=== PATIENT | male | born 1965 | race Caucasian/White ===

== ENCOUNTER 2016-12-09 10:53 | Day surgery (SDC) | payer BC ==
[2016-12-06 09:34] VITALS: BMI 35.9
[~2016-12-09 10:53] MED LIST: HYDROmorphone 1 MG/ML 1 ML SYRINGE IVP PRN; LACTATED RINGERS 1,000 ML IV SCH; LIDOCAINE 1% 20 ML VIAL (10MG/ML) FOR IV START INTRADERMA PRN; MIDAZOLAM 2 MG/2 ML VIAL IV PRN
[2016-12-09] MEDS ORDERED: LACTATED RINGERS 1,000 ML IV ONE (11:13)
[2016-12-09] MEDS ORDERED: LIDOCAINE 1% 20 ML VIAL (10MG/ML) FOR IV START INTRADERMA ONE (11:14)
[2016-12-09 11:19] VITALS: TEMP 98.7
[2016-12-09] MEDS ORDERED: fentaNYL (PF) 50 MCG/ML 2 ML AMP IV ONE (11:30)
[2016-12-09] MEDS ORDERED: LIDOCAINE 1% INJ 10MG/ML (20 ML MDV) ONE (12:22)
[2016-12-09] MEDS ORDERED: PROPOFOL 10 MG/ML 20 ML VIAL IV ONE (12:22)
[2016-12-09 12:58] VITALS: RESP 16
--- NOTE | 2016-12-09 13:00 | P.PCN ---
Date of Procedure: 12/09/16 Procedure(s) Performed: Procedure: Total colonoscopy. Preoperative diagnosis: Screening for neoplasia, patient has family history of colon cancer. Postoperative diagnosis: Sigmoid diverticulosis with no evidence of acute diverticulitis, strictures, polyps or cancer. Preparation: HalfLytely prep. Sedation: Was provided by anesthesia. Brief clinical history: The patient is a 50-year-old male who is referred for this evaluation for screening because of family history of colon cancer in his father. He had a prior exam around 7 years ago. The patient has no abdominal complaints, bleeding or anemia. He has been complaining of nocturia and was wondering if this is related to his prostate. Procedure: With the patient on his left lateral decubitus position and after informed consent and adequate sedation, the perianal area was inspected and it did not show any fissures or fistulas. There were no masses felt on digital rectal examination. The prostate was not palpable and certainly I did not feel any masses or nodules in that area. The Olympus CFQ 160L video colonoscope was then inserted in the rectum in the usual fashion and advanced to the cecum. There were several diverticular orifices seen scattered in the sigmoid but I saw no evidence of acute diverticulitis or strictures. No polyps or tumors were seen or any other pathology. I retroflexed the endoscope in the rectum before the endoscope was withdrawn. The patient tolerated the procedure well. Plan: The patient was reassured. Discussed dietary measures. He will follow up with you as planned and I recommended repeat exam in 5 years.
[2016-12-09 13:09] VITALS: BP 130/85; PULSE 76
== END 2016-12-09 13:50 | disposition home or self-care (01) ==
LOC: ORWHC2ENDO 10:53
DX: Z12.11 Encounter for screening for malignant neoplasm of colon (principal); Z80.0 Family history of malignant neoplasm of digestive organs; K57.30 Diverticulosis of large intestine without perforation or abscess without bleeding; I10 Essential (primary) hypertension; E78.5 Hyperlipidemia, unspecified; E66.9 Obesity, unspecified; Z68.35 Body mass index [BMI] 35.0-35.9, adult; R35.1 Nocturia
CPT/HCPCS: J2001; J3010; J2704; G0105; 45378; 99153

== ENCOUNTER → 2017-11-01 | Outpatient (CLI) | payer BC ==
--- NOTE | 2017-11-01 09:27 | US ---
EXAMINATION TYPE: US prostate transrectal DATE OF EXAM: 11/01/2017 COMPARISON: NONE CLINICAL HISTORY: Z80.42 family hx prostate ca. father has prostate ca, patient's PSA has been within a range of 1.0-2.0, nocturia 4-6 times a night This examination was performed using the transrectal probe. EXAM MEASUREMENTS: Gland Size: 4.4 x 3.8 x 3.3cm Volume: 29.6ml Predicted PSA: 3.5 Actual PSA (if available):1.6 Calcification within left central zone compresses left peripheral zone to the point I could not fully evaluate, heterogeneous gland in general with no definite lesions noted at today's exam. IMPRESSION: 1. Borderline glandular enlargement. 2. No focal lesions identified at this time. Predicted PSA = volume x 0.12 ng/ml Calculated Volume = 0.5236 x L x W x H
== END | disposition home or self-care (01) ==
LOC: RADUSMAIN 07:54
PROVIDERS: ATTEND Family Medicine
DX: N40.0 Benign prostatic hyperplasia without lower urinary tract symptoms (principal); Z80.42 Family history of malignant neoplasm of prostate
CPT/HCPCS: 76872

== ENCOUNTER 2018-01-19 05:21 | Emergency (ER) | payer BC ==
[2018-01-19] MEDS ORDERED: KETOROLAC 60 MG/2 ML VIAL IM STA (05:47)
[2018-01-19] MEDS ORDERED: ORPHENADRINE 30 MG/ML 2 ML VIAL IM STA (05:47)
--- NOTE | 2018-01-19 05:52 | ED ---
Fall HPI - General Chief Complaint: Fall Stated Complaint: FALL Time Seen by Provider: 01/19/18 05:35 Source: patient Mode of arrival: wheelchair - History of Present Illness Initial Comments: This patient is a 52-year-old man who presents to be evaluated for left lumbar back pain. The patient states that he was getting up this morning and then he has had a slip and fall injury on the stairs. The stairs did impact his left lower back. He did note that there was some burning and aching pain. There was a little bit of tingling to the left leg. He did not develop any saddle anesthesia. He has not had a change in bladder or bowel function area the patient states that due to the pain he was lying on the ground for probably 30 minutes before he was able to get up. He states that when he does attempt to move he'll get a sharp spasm of pain to the left low back. He does not have any other injury. He did not have loss of consciousness. He has no head or neck pain. There is no chest or abdominal pain area no pain of the extremities. 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[employer] Fall Witnessed: yes, by family Place Fall Occurred: home Loss of Consciousness: none Prolonged Down Time?: minute(s) Symptoms Prior to Fall: none Location: back Severity: severe Quality: burning, aching Context: tripped/slipped - Related Data Home Medications Medication Instructions Recorded Confirmed Simvastatin [Zocor] 20 mg PO DAILY 07/07/16 01/19/18 amLODIPine BESYLATE/BENAZEPRIL 1 cap PO DAILY 07/07/16 01/19/18 [amLODIPine BESYLATE/BENAZEPRIL 5-20 mg] Naproxen Sodium [Aleve] 440 mg PO DAILY 12/06/16 01/19/18 Previous Rx's Medication Instructions Recorded Ibuprofen [Motrin] 600 mg PO Q8HR PRN #20 tab 01/19/18 Methocarbamol [Robaxin-750] 750 mg PO TID PRN #30 tablet 01/19/18 Allergies Allergy/AdvReac Type Severity Reaction Status Date / Time shellfish derived [Shellfish] Allergy Rash/Hives Verified 01/19/18 05:30 Review of Systems ROS Statement: Those systems with pertinent positive or pertinent negative responses have been documented in the HPI. ROS Other: All systems not noted in ROS Statement are negative. Constitutional: Denies: fever, chills, weakness Respiratory: Denies: cough, dyspnea Cardiovascular: Denies: chest pain, palpitations, orthopnea, syncope Gastrointestinal: Denies: abdominal pain Genitourinary: Denies: dysuria, hematuria Musculoskeletal: Reports: back pain Neurological: Denies: headache, weakness, numbness Past Medical History Past Medical History: Hyperlipidemia, Hypertension Additional Past Medical History / Comment(s): FREQUENT NIGHT URINATION. History of Any Multi-Drug Resistant Organisms: None Reported Past Surgical History: Appendectomy, Cholecystectomy, Hernia Repair, Orthopedic Surgery, Tonsillectomy Additional Past Surgical History / Comment(s): 07/14/16 anterior cervical decompression and fusion C4-5, C5-6. Other surgical hx: kevin carpal tunnel, arthroscopy kevin knee, lump removed from neck, lasik eye surgery, kevin shoulder rotator cuff, vasectomy, Kevin Inguinal Hernia, Umbilical Hernia Past Anesthesia/Blood Transfusion Reactions: Family History of Problems w/ Anesthesia, Postoperative Nausea & Vomiting (PONV) Additional Past Anesthesia/Blood Transfusion Reaction / Comment(s): PT STATES HE WAKES UP ANGRY. PTS FATHER WOULD NOT WAKE UP AND HAD TO GO TO ICU DEPT. Past Psychological History: No Psychological Hx Reported Smoking Status: Never smoker Past Alcohol Use History: Occasional Past Drug Use History: None Reported - Past Family History Father Family Medical History: Cancer Additional Family Medical History / Comment(s): Colon and Prostate Cancer Mother Family Medical History: Cancer Additional Family Medical History / Comment(s): Mother had lung, breast and bone cancer. She at the age of 60 yrs. General Exam Limitations: no limitations General appearance: alert, in no apparent distress Head exam: Present: atraumatic, normocephalic Eye exam: Present: normal appearance. Absent: scleral icterus, conjunctival injection Neck exam: Present: full ROM. Absent: tenderness Respiratory exam: Present: normal lung sounds bilaterally. Absent: respiratory distress, wheezes, rales, rhonchi, stridor, chest wall tenderness Cardiovascular Exam: Present: regular rate, normal rhythm, normal heart sounds. Absent: systolic murmur, diastolic murmur, rubs, gallop GI/Abdominal exam: Present: soft. Absent: distended, tenderness, guarding, rebound, rigid, mass, pulsatile mass Back exam: Present: muscle spasm, paraspinal tenderness. Absent: CVA tenderness (R), CVA tenderness (L), vertebral tenderness Neurological exam: Present: alert, reflexes normal. Absent: motor sensory deficit Skin exam: Present: warm, dry, intact, normal color. Absent: rash Course Vital Signs 01/19/18 05:26 Temperature 98.1 F Pulse Rate 90 Respiratory 18 Rate Blood Pressure 141/94 O2 Sat by Pulse 94 L Oximetry Disposition Clinical Impression: Fall, Lumbar back pain Disposition: HOME SELF-CARE Condition: Fair Instructions: Acute Low Back Pain (ED) Prescriptions: Ibuprofen [Motrin] 600 mg PO Q8HR PRN #20 tab PRN Reason: Pain Methocarbamol [Robaxin-750] 750 mg PO TID PRN #30 tablet PRN Reason: pain Referrals: Erick Givens MD [Primary Care Provider] - 1-2 days
--- NOTE | 2018-01-19 06:17 | XR ---
EXAM: XR Lumbar Spine, 2 or 3 Views CLINICAL HISTORY: ITS.REASON XR Reason: trauma TECHNIQUE: Frontal and lateral views of the lumbar spine. COMPARISON: No relevant prior studies available. FINDINGS: 6 lumbar type vertebra. No fracture or spondylolisthesis. Facet arthrosis noted from L4-S1. Anterior disc spur complex ease seen in L1-2 and L2-3. Soft tissues are within normal limits. IMPRESSION: No fracture or spondylolisthesis. Spondylotic changes as above.
--- NOTE | 2018-01-19 07:06 | XR ---
AP pelvis HISTORY: Trauma and pain Single frontal view of the pelvis submitted. No comparisons Mild arthropathy noted within the hips. Alignment, bone mineralization are maintained. IMPRESSION: No fracture or dislocation is evident. Osteoarthritis.
[2018-01-19 07:49] VITALS: BP 132/70; PULSE 72; RESP 16; TEMP 97.9
== END 2018-01-19 07:40 | disposition home or self-care (01) ==
LOC: EC 05:21
DX: M54.5 Low back pain (principal); E78.5 Hyperlipidemia, unspecified; I10 Essential (primary) hypertension; Z79.1 Long term (current) use of non-steroidal anti-inflammatories (NSAID); Z79.899 Other long term (current) drug therapy; Z91.013 Allergy to seafood; W10.9XXA Fall (on) (from) unspecified stairs and steps, initial encounter; Y92.009 Unspecified place in unspecified non-institutional (private) residence as the place of occurrence of the external cause
CPT/HCPCS: 72100; 72170; 99283; 96372 ×2; J2360; J1885

== ENCOUNTER → 2019-04-14 | Outpatient (CLI) | payer BC ==
[2019-04-14 09:40] LABS: HCT 46.7 % (39.0-53.0); HGB 15.4 gm/dL (13.0-17.5); MCH 28.4 pg (25.0-35.0); MCHC 32.9 g/dL (31.0-37.0); MCV 86.2 fL (80.0-100.0); Mean Platelet Volume 6.6; Platelet Count 232 k/uL (150-450); RBC 5.42 m/uL (4.30-5.90); RDW 13.6 % (11.5-15.5)
[2019-04-14 09:48] LABS: INR 0.9 (<1.2); Partial Thromboplastin Time 23.6 sec (22.0-30.0); Prothrombin Time 9.7 sec (9.0-12.0)
[2019-04-14 10:00] LABS: ALT 33 U/L (21-72); AST 25 U/L (17-59); Albumin 3.9 g/dL (3.5-5.0); Alkaline Phosphatase 101 U/L (38-126); Anion Gap 5 mmol/L; Blood Urea Nitrogen 15 mg/dL (9-20); Calcium 9.1 mg/dL (8.4-10.2); Carbon Dioxide 27 mmol/L (22-30); Chloride 109 mmol/L (98-107); Glucose 108 mg/dL (74-99); Potassium 4.4 mmol/L (3.5-5.1); Sodium 141 mmol/L (137-145); Total Bilirubin 0.6 mg/dL (0.2-1.3); Total Protein 6.8 g/dL (6.3-8.2)
[2019-04-14 10:20] LABS: Appearance,Urine Clear (Clear); Bacteria,Urine Rare /hpf; Bilirubin,Urine Negative (Negative); Blood,Urine Negative (Negative); Color,Urine Yellow; Glucose,Urine (UA) Negative (Negative); Ketones,Urine Negative (Negative); Leukocyte Esterase,Urine Trace (Negative); Mucus,Urine Rare /hpf; Nitrite,Urine Negative (Negative); PH, Urine 5.5 (5.0-8.0); Protein,Urine Negative (Negative); RBC,Urine <1 /hpf (0-5); Specific Gravity,Urine 1.021 (1.001-1.035); Urobilinogen,Urine <2.0 mg/dL (<2.0); WBC,Urine 1 /hpf (0-5)
== END | disposition home or self-care (01) ==
LOC: LABPAT 09:02
PROVIDERS: ATTEND Orthopaedic Surgery Sports Medicine
DX: Z01.812 Encounter for preprocedural laboratory examination (principal); M17.11 Unilateral primary osteoarthritis, right knee
CPT/HCPCS: 36415; 80053; 81001; 85027; 85610; 85730; 87070; 93005

== ENCOUNTER 2019-04-25 10:55 | Inpatient (IN) | payer BC ==
[~2019-04-25 10:55] MED LIST changes: +ACETAMINOPHEN TAB 500 MG TAB PO ONE; +DEXAMETHASONE SOD PHOSPHATE 10 MG/ML 1 ML VIAL IV ONE; +HYDROmorphone 0.5 MG/0.5 ML SYRINGE IVP PRN; -HYDROmorphone 1 MG/ML 1 ML SYRINGE IVP PRN; -LACTATED RINGERS 1,000 ML IV SCH; +MELOXICAM 7.5 MG TAB PO ONE; -MIDAZOLAM 2 MG/2 ML VIAL IV PRN; +ONDANSETRON 4 MG/2 ML VIAL IVP ONE; +ROPIVACAINE 246.25 MG, EPINEPHrine 0.5 MG, KETOROLAC 30 MG, cloNIDine HCL/PF 80 MCG, WA... MISCELLANE ONE; +SCOPOLAMINE 1.5MG/72HR PATCH TRANSDERM ONE; +TRANEXAMIC ACID 1,000 MG in SODIUM CHLORIDE 0.9% 100 ML IVPB ONE; +ceFAZolin IN SWFI 2 GM/20 ML SYRINGE IVP ONE
[2019-04-25] MEDS: LACTATED RINGERS 1,000 ML IV SCH ×2 (11:51→17:20)
[2019-04-25] MEDS ORDERED: fentaNYL (PF) 50 MCG/ML 2 ML AMP IV ONE (12:34)
[2019-04-25] MEDS ORDERED: MORPHINE SULFATE (PF) 0.3 MG/0.3 ML SYR ONE (13:03)
[2019-04-25] MEDS ORDERED: PHENYLEPHRINE-0.9% NACL SYG 1 MG/10 ML SYRINGE ONE (13:03)
[2019-04-25] MEDS ORDERED: TRANEXAMIC ACID 1,000 MG/10 ML VIAL ONE (13:03)
[2019-04-25] MEDS ORDERED: ePHEDrine SULFATE/0.9% NACL/PF 50 MG/5 ML SYRINGE IV ONE (13:03)
[2019-04-25] MEDS ORDERED: MIDAZOLAM 2 MG/2 ML VIAL ONE (13:03)
[2019-04-25] MEDS ORDERED: diphenhydrAMINE 50 MG/ML 1 ML VIAL ONE (13:03)
[2019-04-25] MEDS ORDERED: fentaNYL (PF) 50 MCG/ML 2 ML AMP ONE (13:03)
[2019-04-25] MEDS ORDERED: SODIUM CHLORIDE 0.9% 100 ML BAG ONE (13:03)
[2019-04-25] MEDS ORDERED: PROPOFOL 10 MG/ML 20 ML VIAL IV ONE (13:03)
[2019-04-25] MEDS ORDERED: ceFAZolin 3,000 MG in SODIUM CHLORIDE 0.9% IRRIGATIO 3,000 ML IRRIGATION ONE (13:08)
[2019-04-25] MEDS ORDERED: TEMAZEPAM 15 MG CAP PO PRN (13:12)
[2019-04-25] MEDS ORDERED: HYDROmorphone 1 MG/ML 1 ML SYRINGE IVP PRN (13:12)
[2019-04-25] MEDS ORDERED: HYDROcodone/APAP 7.5-325MG 1 EACH TAB PO PRN (13:12)
[2019-04-25] MEDS ORDERED: ACETAMINOPHEN TAB 325 MG TAB PO PRN (13:12)
[2019-04-25] MEDS ORDERED: traMADol 50 MG TAB PO PRN (13:12)
[2019-04-25] MEDS ORDERED: NA PHOS,M-B/NA PHOS,DI-BA 133 ML ENEMA RECTAL PRN (13:12)
[2019-04-25] MEDS ORDERED: HYDROcodone/APAP 5-325MG 1 EACH TAB PO PRN ×2 (13:12)
[2019-04-25] MEDS ORDERED: ONDANSETRON 4 MG/2 ML VIAL IVP PRN (13:12)
[2019-04-25] MEDS ORDERED: HYDROcodone/APAP 10-325MG 1 EACH TAB PO PRN (13:12)
[2019-04-25] MEDS ORDERED: BISACODYL 10 MG SUPP RECTAL PRN (13:12)
[2019-04-25] MEDS ORDERED: MAGNESIUM HYDROXIDE 2,400 MG/10 ML CUP PO PRN (13:12)
[2019-04-25] MEDS ORDERED: NALOXONE 0.4 MG/ML 1 ML VIAL IV PRN ×2 (13:12→17:03)
[2019-04-25] MEDS ORDERED: HYDROmorphone 0.5 MG/0.5 ML SYRINGE IVP PRN ×2 (13:12)
[2019-04-25] MEDS ORDERED: DIAZEPAM 5 MG TAB PO PRN (13:12)
--- NOTE | 2019-04-25 15:44 | XR ---
EXAMINATION TYPE: XR knee limited RT DATE OF EXAM: 04/25/2019 COMPARISON: NONE TECHNIQUE: Two views submitted HISTORY: Post op FINDINGS: There is a prosthetic knee in near anatomic alignment. There is soft tissue edema and emphysema. IMPRESSION: 1. Postoperative change. Appears in near-anatomic alignment
[2019-04-25 16:36] VITALS: BMI 35.6
[2019-04-25] MEDS ORDERED: diphenhydrAMINE 50 MG/ML 1 ML VIAL IVP PRN (17:03)
--- NOTE | 2019-04-25 18:36 | P.CONS ---
History of Present Illness - Reason for Consult Consult date: 04/25/19 Medical management Requesting physician: Norm Ross - Chief Complaint Total knee arthroplasty right - History of Present Illness This is a pleasant 53-year-old gentleman patient of Dr. Spencer. He has underlying history of osteoarthritis, hyperlipidemia GERD hypertension admitted to the service of Dr. Ross for right total knee arthroplasty performed on 0 04/25/2019. Patient is seen postoperatively for medical management, he denies any chest pain shortness of breath, no palpitations, some nausea and without vomiting, patient denies any history off previews COPD asthma, no CVA AL in the past, no history of DVT or PE. Patient denies any history of drug resistance infections in the past, patient denies any poor healing conditions Vital signs are stable on admission, O2 sats 94% on room air, heart rate is normal 98, preop hg 15. aic 5.8 creat 0.9 PSA normal 2.4, vitamin D was low at 27 Review of Systems Constitutional: Reports as per HPI, Denies anorexia, Denies chills, Denies chronic headaches, Denies chronic pain, Denies daytime sleepiness, Denies fatigue, Denies fever, Denies lethargy, Denies malaise, Denies night sweats, Denies poor appetite, Denies sweats, Denies weakness, Denies weight gain, Denies weight loss Ears, nose, mouth and throat: Reports as per HPI Cardiovascular: Reports as per HPI, Denies chest pain, Denies claudication, Denies decreased exercise tolerance, Denies dyspnea on exertion, Denies edema, Denies high blood pressure, Denies irregular heart beat, Denies leg edema, Denies lightheadedness, Denies orthopnea, Denies palpitations, Denies paroxysmal nocturnal dyspnea, Denies phlebitis, Denies rapid heart beat, Denies shortness of breath, Denies syncope Respiratory: Reports as per HPI, Denies congestion, Denies cough, Denies cough with sputum, Denies dyspnea, Denies excessive sputum, Denies hemoptysis, Denies home oxygen, Denies pain, Denies pain on inspiration, Denies pleurisy, Denies respiratory infections, Denies sleep apnea, Denies snoring, Denies wheezing Gastrointestinal: Reports as per HPI, Denies abdominal pain, Denies belching, Denies bloating, Denies BRBPR, Denies change in bowel habits, Denies coffee ground emesis, Denies constipation, Denies diarrhea, Denies dyspepsia, Denies early satiety, Denies excessive gas, Denies heartburn, Denies hematemesis, Denies hematochezia, Denies indigestion, Denies jaundice, Denies lactose intolerance, Denies loss of appetite, Denies melena, Denies nausea, Denies vomiting Genitourinary: Reports as per HPI Musculoskeletal: Reports as per HPI, Reports gait dysfunction Integumentary: Reports as per HPI Neurological: Reports as per HPI, Denies aphasia, Denies ataxia, Denies balance difficulties, Denies burning pain, Denies change in mentation, Denies change in smell/taste, Denies change in speech, Denies confusion, Denies convulsions, Denies double vision, Denies gait dysfunction, Denies head injury, Denies he adaches, Denies hearing difficulties, Denies lack of coordination, Denies loss of vision, Denies memory loss, Denies migraines, Denies motor disturbance, Denies numbness, Denies paralysis, Denies paresthesias, Denies seizures, Denies sensory deficit, Denies spasticity, Denies syncope, Denies tic, Denies tingling, Denies transient paralysis, Denies tremors, Denies vertigo, Denies weakness, Denies visual changes Psychiatric: Reports as per HPI, Denies anhedonia, Denies anxiety, Denies anxiety attacks, Denies change in appetite, Denies change in libido, Denies change in sleep habits, Denies confusion, Denies depression, Denies difficulty concentrating, Denies disorientation, Denies hallucinations, Denies hopelessness, Denies hypersomnia, Denies insomnia, Denies irritability, Denies memory loss, Denies mood swings, Denies paranoia, Denies sadness/tearfulness, Denies sleep disturbances, Denies suicidal ideation Endocrine: Reports as per HPI Hematologic/Lymphatic: Reports as per HPI Allergic/Immunologic: Reports as per HPI Past Medical History Past Medical History: GERD/Reflux, Hyperlipidemia, Hypertension, Skin Disorder Additional Past Medical History / Comment(s): yeast infection on skin-back and shoulders, History of Any Multi-Drug Resistant Organisms: None Reported Past Surgical History: Appendectomy, Cholecystectomy, Hernia Repair, Orthopedic Surgery, Tonsillectomy Additional Past Surgical History / Comment(s): anterior cervical decompression and fusion C4-5, C5-6. kevin carpal tunnel, arthroscopy kevin knee, lump removed from neck, lasik eye surgery, kevin shoulder rotator cuff, vasectomy, Kevin Inguinal Hernia, Umbilical Hernia Past Anesthesia/Blood Transfusion Reactions: Family History of Problems w/ Anesthesia, Postoperative Nausea & Vomiting (PONV) Additional Past Anesthesia/Blood Transfusion Reaction / Comm: PT STATES HE WAKES UP ANGRY. PTS FATHER WOULD NOT WAKE UP AND HAD TO GO TO ICU Past Psychological History: No Psychological Hx Reported Smoking Status: Never smoker Past Alcohol Use History: Occasional Past Drug Use History: None Reported - Past Family History Father Family Medical History: Cancer Additional Family Medical History / Comment(s): Colon and Prostate Cancer Mother Family Medical History: Cancer Additional Family Medical History / Comment(s): Mother had lung, breast and bone cancer. Medications and Allergies Home Medications Medication Instructions Recorded Confirmed Type Simvastatin [Zocor] 20 mg PO DAILY 07/07/16 04/25/19 History amLODIPine BESYLATE/BENAZEPRIL 1 cap PO DAILY 07/07/16 04/25/19 History [amLODIPine BESYLATE/BENAZEPRIL 5-20 mg] traMADol HCl [Ultram] 50 mg PO TID PRN 04/18/19 04/25/19 History Cholecalciferol [Vitamin D3 (25 5,000 unit PO DAILY 04/25/19 04/25/19 History Mcg = 1000 Iu)] Omeprazole 20 mg PO DAILY 04/25/19 04/25/19 History Allergies Allergy/AdvReac Type Severity Reaction Status Date / Time shellfish derived [Shellfish] Allergy Rash/Hives Verified 04/25/19 11:31 Physical Exam Vitals: Vital Signs Temp Pulse Pulse Resp BP BP Pulse Ox 04/25/19 18:15 95 04/25/19 18:13 20 04/25/19 17:22 98 16 142/87 94 L 04/25/19 17:21 93 L 04/25/19 16:15 98.1 F 84 18 142/89 95 04/25/19 15:47 69 18 112/61 92 L 04/25/19 15:32 71 18 114/61 97 04/25/19 15:17 97 F L 87 16 96/70 94 L 04/25/19 11:44 97.8 F 96 16 131/67 96 Intake and Output 04/25/19 04/25/19 04/25/19 06:59 14:59 22:59 Intake Total 901 0 Output Total 100 Balance 801 0 Intake: IV 901 0 Output: Estimated Blood Loss 100 - Constitutional General appearance: cooperative, no acute distress, obese - EENT Eyes: anicteric sclerae, EOMI, PERRLA, dentition normal, normal appearance ENT: hearing grossly normal, NA/AT, normal oropharynx - Neck Neck: no lymphadenopathy, normal ROM, no other, no rigidity, no stridor, no thyromegaly - Respiratory Respiratory: bilateral: CTA, negative: diminished, dullness, rales, rhonchi - Cardiovascular Rhythm: regular Heart sounds: normal: S1 Abnormal Heart Sounds: no systolic murmur, no diastolic murmur, no rub, no S3 Gallop, no S4 Gallop, no click, no other - Gastrointestinal General gastrointestinal: normal bowel sounds, soft - Integumentary Integumentary: decreased turgor, normal - Neurologic Neurologic: CNII-XII intact - Musculoskeletal Musculoskeletal: gait normal, strength equal bilaterally - Psychiatric Psychiatric: A&O x's 3, appropriate affect, intact judgment & insight Assessment and Plan Assessment: 1. Status post right total knee arthroplasty postop day #0 performed 04/25/2019, patient is seen postoperatively for medical management, continue on incentive spirometry, DVT prophylaxis, home medications are resumed with parameters opiates for pain, 2. Hypertension, on amlodipine and benazepril, 1 daily 3. Chronic osteophyte is on maintenance tramadol at home, this will be switched to opiates transiently and thereafter resumed tramadol. Opiates to be dispensed by orthopedics discharge 4. GERD on maintenance omeprazole 5. Vitamin D deficiency on 5000 units of vitamin D3 daily, levels are due to be checked post discharge DVT prophylaxis, aspirin 325 mg twice a day Thank you Dr. Ross in allowing us to participate in the care of your patient. We are going to follow him with you during this current hospital stay, recommendations will be made based on his clinical progress we will follow him
[2019-04-25] MEDS ORDERED: NALBUPHINE 10 MG/ML (1 ML AMP) IV ONE (20:13)
[2019-04-25] MEDS ORDERED: SENNOSIDES-DOCUSATE SODIUM 1 EACH TAB PO SCH (21:00)
[2019-04-25] MEDS: ASPIRIN 325 MG TAB PO SCH (21:52)
[2019-04-25] MEDS: ceFAZolin IN SWFI 2 GM/20 ML SYRINGE IVP SCH (21:52)
--- NOTE | 2019-04-26 00:54 | OP ---
OPERATIVE REPORT DATE OF PROCEDURE: 04/25/2019. PREOPERATIVE DIAGNOSIS: Right knee osteoarthrosis. POSTOPERATIVE DIAGNOSIS: Right knee osteoarthrosis. OPERATION PERFORMED: Right total knee arthroplasty. SURGEON: Pepe Ding MD. CHERRY SORTER: Leopoldo MOROCHO. ANESTHESIA: Spinal with sedation. ESTIMATED BLOOD LOSS: 100 mL. TOURNIQUET TIME: 58 minutes at 250 mmHg. COMPLICATIONS: None apparent. DRAINS: None. DISPOSITION: Postanesthesia care unit. INDICATIONS: Jose is a 53-year-old male with longstanding history of right knee pain. History and physical examination are consistent with advanced right knee osteoarthrosis. He has been through significant nonoperative management up to this point. Further treatment options were discussed. He has decided to go forward with right total knee arthroplasty. Risks of procedure were discussed with him in detail. These risks include, but are not limited to risk of infection, nerve damage, bleeding, pain, and a small risk of deep vein thrombosis which could lead to fatal pulmonary embolism. There is also risk of loosening of the implant which could require revision operation. The patient understands these risks. All of his questions were answered to his satisfaction. Appropriate informed consent was obtained. DESCRIPTION OF THE PROCEDURE: The patient identified in preoperative holding area. Surgical sites marked by both the patient and myself. He was given 2 g of Ancef IV for prophylactic purposes. He was then transferred to the operative suite where he was placed supine on the operative table. Spinal anesthetic was administered and dosed per the anesthesia without apparent complication. Examination under anesthesia was then performed. The patient was about 5-7 degrees shy of full extension. 90 degrees of flexion. The medial collateral ligament, lateral collateral ligament and posterior cruciate ligaments were stable. Tourniquet was then placed on the right upper thigh well-padded in preparation for surgery. The patient's right lower extremity was then prepped and draped in usual sterile fashion. Standard surgical pause undertaken to ensure that we were operating on the correct site and that appropriate preop antibiotics were given. All staff in room in agreement and we proceeded. The outlines of patellar marked surgical pen. A planned 12 cm vertical incision centered over the over the patella was marked with a surgical pen. The leg was then exsanguinated with an Esmarch dressing. The knee was then flexed and the tourniquet was inflated to 250 mmHg. The total tourniquet time for the procedure was 58 minutes Incision was then made with a 10 blade scalpel. Dissection carried down sharply overlying fascia. Great care was taken to minimize skin flaps. The knee was then exposed using a standard medial parapatellar approach. A small cuff of quadriceps tendon was then left for suturing. He was in quite a bit of varus preoperatively. A standard medial release was then made. Superficial medial collateral ligament was dissected off the bone around the posterior aspect of the proximal tibia. The medial meniscus was then excised as well. The lateral meniscus was also released anteriorly. The leg was then externally rotated. The patella was everted. The knee was flexed. Retractors then placed to protect the collateral ligaments. I then proceeded to remove the infrapatellar fat pad. This was excised sharply tangentially with the fibers of the patellar tendon. I then proceeded to remove peripheral osteophytes. This was done with a rongeur. I then proceed with the distal femoral resection. He did have a flexion contracture. A planned 11 mm resection was then done. The femoral canal was then entered in midline of the femur approximately 10 mm anterior to the origin of the posterior cruciate ligament. The angel was then advanced down the center of the femur and placed intramedullary. Based on preoperative radiographs, the angle between the anatomic and mechanical axis of the femur was approximately 4-5 degrees. The valgus angle of the distal femoral cutting guide was then set at 4 degrees for the right knee. The distal femoral cutting guide was then advanced over the intramedullary angel. This was seated firmly against the femur. I then as mentioned planned to take 11 mm off the distal femur. The cutting block was then secured onto the femur with pins. The jig was removed and the distal femoral cut was made through the slot of the block. The pins were removed. The distal femoral cutting block was removed. The accuracy of this femoral cuts was checked with 2 flat bars. I then proceed with femoral sizing. Posterior referencing sizing guide was held firmly against the resected distal surface of the femur. Posterior condyles were resting on the posterior plane of the guide. The sizing stylus was then placed onto the anterior femur. The size was measured as a size 9. I then assessed for femoral rotation. I planned for 3 degrees of external rotation. Three degrees external rotation was placed onto the jig. These holes were then marked. I then confirmed the rotation by 3 separate methods. This was done using epicondylar axis as well as Whitesides line and posterior referencing. It was deemed that the external rotation was proper. I then went forward placing the femoral cutting block. This was placed over the previously placed pin holes. The Don wing was then placed onto the anterior slots to ensure that we would not notch the anterior femur with the anterior femoral cut. I then proceed with the anterior femoral cut. This was flush with the anterior cortex of the femur. The posterior cuts were then made followed by the anterior chamfer cut, then the posterior chamfer cut. The cutting block was then removed. Throughout the resection, the collateral ligaments were protected with retractors. I then placed a trial size 9 femur. It fit very nice medial-lateral and fit flush with the distal end of the femur. The drill holes were then made. I then proceeded with the tibial cut. I planned for cruciate retaining knee. The guide was placed and set for varus valgus and for slope. The height was set for approximate 2 mm resection from the medial tibial plateau which was the lower side. I was happy with the alignment and amount of resection. The cutting block was then pinned to the proximal tibia. The alignment angel was removed. The proximal tibia was resected with a reciprocating saw. Again this was done with retractors protecting the collateral ligaments as well as the posterior cruciate ligament. I then proceeded to evaluate the flexion and extension gaps. A 10 mm block was then placed. The flexion-extension gaps were equal. I then proceed to resection of posterior osteophytes. Very extensive posterior osteophytes present. This was done using a curved osteotome. This resected the posterior osteophytes and posterior capsule stripping was done off the posterior aspect of the femur. Osteophytes were then removed. I then proceeded with resection of patella. The thickness of the patella was measured using the caliper. The thickness was approximately 26 mm. The thickness of the anticipated patellar dome was taken into account. Resection was then performed and confirmed to be equal in 4 quadrants using a caliper. Approximately 14 mm of bone remained after the resection. A 35 x 9 standard patellar trial was then placed. The holes were drilled. The trial was then placed. I then proceeded with sizing tibial plate. A size F tibial plate fit very nicely. I then placed the trial femur over the tibial tray and patellar button. A 10 mm trial insert was also placed. The components fit very nicely. He had full extension and flexion. The extension and flexion gaps were equal and stable to both varus and valgus stress. The patella tracked appropriately. Tibial tray rotation was marked with Bovie. This was externally rotated properly. I then proceed with tibial preparation. I first drilled the femoral holes, removed the femoral component. The tibial tray was then set for proper external rotation as well as mediolateral placement of the tibia. It was then pinned into place. I then proceed with punching the keel. Then decided to proceed with cementing of all of our components. The knee was thoroughly irrigated with sterile saline solution via pulse lavage. The lateral geniculate artery was identified and cauterized. All blood was removed from the bone of the tibia femur and patella with pulse lavage. I then proceed with cementing. Two packs of antibiotic bone cement were prepared on the back table by the surgical scrub technician. I then proceeded with cementing the tibia first. The cement was impacted in the keel as well as deeply seated in the bone. A second coat of cement was then placed. The tibia was then impacted into place. Excess cement was removed with [employer]'s and Joker's. I then proceed with cementing of the femoral component. The femoral components also cemented using standard technique. Excess cement was removed. A 10 mm trial insert was then placed into the knee. It was brought into full extension with a constant axial load placed until the cement had hardened. The patellar component was then cemented. This held firmly with a compressive device until the cement had dried. When the cement had dried, the knee was taken out of extension. All excess cement was removed from around the prosthesis. I then trialed the knee with a 10 mm insert. The flexion-extension gaps were appropriate. The knee was stable. It came into full extension. I decided to go forward with a 10 mm cross- linked cruciate-retaining tibial insert. Polyethylene was then placed on the tibial tray and then locked into place. The knee was then reduced. The knee was again further irrigated with sterile saline solution with antibiotic added. The tourniquet was then deflated. Total tourniquet time for the procedure was 58 minutes. Final components were Arron Persona size 9 cruciate- retaining femoral component, a size F tibial tray, a 35 x 9 mm patellar component, and a 10 mm medial congruent cruciate-retaining polyethylene insert. I then proceeded with closure. Again, the knee was thoroughly irrigated with sterile saline solution. The quadriceps tendon and the medial retinaculum were reapproximated with #2 Ethibond suture. The extensor mechanism was then closed in a running Quill with a running #2 Quill suture. Subcutaneous tissues were then closed with 2-0 Vicryl suture. The skin was closed with a running 3-0 Quill suture. Dermabond was applied to the incision. All sponge and needle counts were deemed correct prior to closure. The patient tolerated procedure without apparent complication. He was transferred recovery room in stable condition. MMODL / IJN: [id number] /
[2019-04-26] MEDS: MORPHINE SULFATE 2 MG/ML SYRINGE IVP PRN ×2 (01:20→07:30)
[2019-04-26] MEDS: LACTATED RINGERS 1,000 ML IV SCH ×3 (01:20→10:27)
[2019-04-26] MEDS: ceFAZolin IN SWFI 2 GM/20 ML SYRINGE IVP SCH (06:25)
[2019-04-26] MEDS ORDERED: PANTOPRAZOLE 40 MG TABLET PO SCH (07:30)
[2019-04-26 08:40] LABS: Basophils % (A) 0 %; Eosinophils % (A) 0 %; HCT 43.7 % (39.0-53.0); HGB 14.2 gm/dL (13.0-17.5); Lymphocytes # (A) 1.5 k/uL (1.0-4.8); Lymphocytes % (A) 9 %; MCH 28.3 pg (25.0-35.0); MCHC 32.4 g/dL (31.0-37.0); MCV 87.3 fL (80.0-100.0); Mean Platelet Volume 6.7; Monocytes # (A) 1.2 k/uL (0-1.0); Monocytes % (A) 7 %; Neutrophils # (A) 12.8 k/uL (1.3-7.7); Neutrophils % (A) 82 %; Platelet Count 256 k/uL (150-450); RBC 5.01 m/uL (4.30-5.90); RDW 13.5 % (11.5-15.5); WBC 15.7 k/uL (3.8-10.6)
[2019-04-26] MEDS: ASPIRIN 325 MG TAB PO SCH (08:56)
[2019-04-26] MEDS ORDERED: amLODIPine 5 MG TAB PO SCH (09:00)
[2019-04-26] MEDS ORDERED: ATORVASTATIN 10 MG TAB PO SCH (09:00)
[2019-04-26] MEDS ORDERED: CHOLECALCIFEROL 1,000 UNIT TAB PO SCH (09:00)
[2019-04-26] MEDS ORDERED: LISINOPRIL 20 MG TAB PO SCH (09:00)
--- NOTE | 2019-04-26 09:56 | P.DS ---
Providers Date of admission: 04/25/19 10:58 Expected date of discharge: 04/26/19 Attending physician: Pepe Ding Consults: 04/25/19 13:12 Consult Physician Routine Consulting Provider: Mariela Rojo Consult Reason/Comments: post op medical medical management Do you want consulting provider notified?: Yes Primary care physician: Ochoa Spencer - Discharge Diagnosis(es) (1) Osteoarthritis of right knee Patient was admitted to the OR on 04/25/2019 to undergo a right total knee arthroplasty. He had failed conservative measures an outpatient and desired to proceed with elective surgery after given informed consent. He underwent the above procedure which he tolerated well without complication. Postoperative hospital course has remained without complication. On day of discharge he is afebrile, vital signs stable, labs within acceptable ranges, tolerating by mouth meds and diet, voiding without difficulty, positive flatus, denies abdominal pain or calf pain, pain is controlled on oral pain medication and has no new complaints. Wound is benign, neurovascular status is intact, calf is soft and nontender, abdomen soft and nontender. Review of systems is negative for numbness, tingling, fever, chills, chest pain, shortness breath, nausea, vomiting, dizziness, headaches, slurred speech or other. Current Visit: Yes Status: Acute Priority: Medium (2) Status post total right knee replacement Current Visit: Yes Status: Acute Priority: Medium Procedures: Right TKA Patient Condition at Discharge: Good Plan - Discharge Summary Discharge Rx Participant: Yes New Discharge Prescriptions: New Aspirin 325 mg PO BID #60 tab Docusate [Colace] 100 mg PO BID #60 capsule Cefadroxil [Duricef] 500 mg PO Q12HR #14 cap HYDROcodone/APAP 7.5-325MG [[place] 7.5-325] 1 - 2 each PO Q6HR PRN #56 tab PRN Reason: Pain No Action amLODIPine BESYLATE/BENAZEPRIL [amLODIPine BESYLATE/BENAZEPRIL 5-20 mg] 1 cap PO DAILY Simvastatin [Zocor] 20 mg PO DAILY traMADol HCl [Ultram] 50 mg PO TID PRN PRN Reason: Pain Cholecalciferol [Vitamin D3 (25 Mcg = 1000 Iu)] 5,000 unit PO DAILY Omeprazole 20 mg PO DAILY Discharge Medication List Simvastatin [Zocor] 20 mg PO DAILY 07/07/16 [History] amLODIPine BESYLATE/BENAZEPRIL [amLODIPine BESYLATE/BENAZEPRIL 5-20 mg] 1 cap PO DAILY 07/07/16 [History] traMADol HCl [Ultram] 50 mg PO TID PRN 04/18/19 [History] Cholecalciferol [Vitamin D3 (25 Mcg = 1000 Iu)] 5,000 unit PO DAILY 04/25/19 [History] Omeprazole 20 mg PO DAILY 04/25/19 [History] Aspirin 325 mg PO BID #60 tab 04/26/19 [Rx] Cefadroxil [Duricef] 500 mg PO Q12HR #14 cap 04/26/19 [Rx] Docusate [Colace] 100 mg PO BID #60 capsule 04/26/19 [Rx] HYDROcodone/APAP 7.5-325MG [[place] 7.5-325] 1 - 2 each PO Q6HR PRN #56 tab 04/26/19 [Rx] Follow up Appointment(s)/Referral(s): Ochoa Spencer DO [Primary Care Provider] - 1 Week Pepe Ding MD [STAFF PHYSICIAN] - 05/04/19 4:05 pm Activity/Diet/Wound Care/Special Instructions: Keep wound clean and dry Take meds as directed Follow-up with Dr. Ding in office Weight bear as tolerated May shower in 3 days if no bleeding Discharge Disposition: HOME WITH HOME HEALTH SERVICES
[2019-04-26] MEDS ORDERED: HYDROcodone/APAP 7.5-325MG 1 EACH TAB PO PRN (10:20)
[2019-04-26] MEDS ORDERED: MULTIVITAMINS, THERA 1 EACH TAB PO SCH (12:00)
[2019-04-26] MEDS ORDERED: TAMSULOSIN 0.4 MG CAP.ER.24H PO STA (12:20)
--- NOTE | 2019-04-26 12:29 | P.PN ---
Subjective Progress Note Date: 04/26/19 This is a pleasant 53-year-old gentleman patient of Dr. Spencer. He has underlying history of osteoarthritis, hyperlipidemia GERD hypertension admitted to the service of Dr. Ross for right total knee arthroplasty performed on 04/25/2019. Patient is seen postoperatively for medical management, he denies any chest pain shortness of breath, no palpitations, some nausea and without vomiting, patient denies any history off previews COPD asthma, no CVA HI in the past, no history of DVT or PE. Patient denies any history of drug resistance infections in the past, patient denies any poor healing conditions Vital signs are stable on admission, O2 sats 94% on room air, heart rate is normal 98, preop hg 15. aic 5.8 creat 0.9 PSA normal 2.4, vitamin D was low at 27 04/26: Vital signs have been stable, patient afebrile. Patient has had urinary retention and required straight cath 2. We will add in Urecholine and Flomax. Patient will be provided prescription for Flomax to continue for 10 day course. Patient is cleared for medicine for discharge once he is able to urinate on his own. Objective - Vital Signs Vital signs: Vital Signs Temp 98.4 F 04/26/19 07:00 Pulse 93 04/26/19 07:00 Resp 17 04/26/19 07:00 BP 129/83 04/26/19 07:00 Pulse Ox 92 L 04/26/19 07:00 Intake & Output 04/25/19 04/26/19 04/26/19 18:59 06:59 18:59 Intake Total 901 1600 Output Total 100 1050 Balance 801 550 Intake: IV 901 Intake, IV Titration 1600 Amount Lactated Ringers 1,000 ml 1600 @ 100 mls/hr IV .Q10H [facility] Rx#:[id number] Output: Urine 1050 Straight 1050 Estimated Blood Loss 100 Other: Voiding Method Toilet # Voids 0 - Exam Review Of Systems: Constitutional: No fever, no chills, no night sweats. No weight change. No weakness, fatigue or lethargy. No daytime sleepiness. EENT: No headache. No blurred vision or double vision, no loss of vision. No loss of Hearing, no ringing in the ears, no dizziness. No nasal drainage or congestion. No epistaxis. No sore throat. Lungs: No shortness of breath, cough, no sputum production. No wheezing. Cardiovascular: No chest pain, no lower extremity edema. No palpitations. No paroxysmal nocturnal dyspnea. No orthopnea. No lightheadedness or dizziness. No syncopal episodes. Abdominal: No abdominal pain. No nausea, vomiting. No diarrhea. No constipation. No bloody or tarry stools.. No loss of appetite. Genitourinary: No dysuria, increased frequency, urgency. Reports urinary retention. Musculoskeletal: No myalgias. No muscle weakness, no gait dysfunction, no frequent falls. No back pain. No neck pain. Discomfort right knee Integumentary: No wounds, no lesions. No rash or pruritus. No unusual bruising. No change in hair or nails. Neurologic: No aphasia. No facial droop. No change in mentation. No head injury. No headache. No paralysis. No paresthesia. Psychiatric: No depression. No anxiety. No mood swings. Endocrine: No abnormal blood sugars. No weight change. No excessive sweating or thirst. No cold intolerance. Physical exam: - Constitutional General appearance: cooperative, no acute distress, obese. Patient resting on edge bed and appears to be comfortable. - EENT Eyes: anicteric sclerae, EOMI, PERRLA, dentition normal, normal appearance ENT: hearing grossly normal, NA/AT, normal oropharynx - Neck Neck: no lymphadenopathy, normal ROM, no other, no rigidity, no stridor, no thyromegaly - Respiratory Respiratory: bilateral: CTA, negative: diminished, dullness, rales, rhonchi - Cardiovascular Rhythm: regular Heart sounds: normal: S1 Abnormal Heart Sounds: no systolic murmur, no diastolic murmur, no rub, no S3 Gallop, no S4 Gallop, no click, no other - Gastrointestinal General gastrointestinal: normal bowel sounds, soft - Integumentary Integumentary: decreased turgor, normal - Neurologic Neurologic: CNII-XII intact - Musculoskeletal Musculoskeletal: gait normal, strength equal bilaterally - Psychiatric Psychiatric: A&O x's 3, appropriate affect, intact judgment & insight - Labs CBC & Chem 7: 04/26/19 08:08 Assessment and Plan Plan: 1. Status post right total knee arthroplasty postop day #0 performed 04/25/2019, patient is seen postoperatively for medical management, continue on incentive spirometry, DVT prophylaxis, home medications are resumed with parameters opiates for pain, 2. Hypertension, on amlodipine and benazepril, 1 daily 3. Chronic osteophyte is on maintenance tramadol at home, this will be switched to opiates transiently and thereafter resumed tramadol. Opiates to be dispensed by orthopedics discharge 4. GERD on maintenance omeprazole 5. Vitamin D deficiency on 5000 units of vitamin D3 daily, levels are due to be checked post discharge 6. Urinary retention requiring straight cath 2. Flomax and Urecholine. DVT prophylaxis, aspirin 325 mg twice a day Discharge plan: home Impression and plan of care have been directed as dictated by the signing physician. Jacqui Serna nurse practitioner acting as scribe for signing physician.
[2019-04-26] MEDS ORDERED: BETHANECHOL 25 MG TAB PO SCH (12:30)
[2019-04-26 15:23] VITALS: BP 111/66; PULSE 86; RESP 16; TEMP 99
--- NOTE | 2019-04-26 21:44 | P.PN ---
Progress Note - Text Progress Note Date: 04/26/19 Patient seen and examined after TKA with duramorph spinal. Being prepared for discharge, pain 3/10 in severity, no pruritis, no n/v.
== END 2019-04-26 18:44 | disposition home health service (06) | DRG 470 ==
LOC: 2ORMAIN 10:58 → 4SSUR 15:24
PROVIDERS: ADMIT Orthopaedic Surgery Sports Medicine; ATTEND Orthopaedic Surgery Sports Medicine
PROC: 0SRC0J9 Replacement of Right Knee Joint with Synthetic Substitute, Cemented, Open Approach (ICD-10-PCS; principal; 2019-04-25 12:30)
DX: M17.0 Bilateral primary osteoarthritis of knee (principal); E78.5 Hyperlipidemia, unspecified; I10 Essential (primary) hypertension; K21.9 Gastro-esophageal reflux disease without esophagitis; R33.9 Retention of urine, unspecified; E55.9 Vitamin D deficiency, unspecified; Z79.899 Other long term (current) drug therapy; Z91.013 Allergy to seafood; Z90.49 Acquired absence of other specified parts of digestive tract; Z98.1 Arthrodesis status; Z80.42 Family history of malignant neoplasm of prostate; Z80.0 Family history of malignant neoplasm of digestive organs; Z80.1 Family history of malignant neoplasm of trachea, bronchus and lung; Z80.3 Family history of malignant neoplasm of breast; Z80.8 Family history of malignant neoplasm of other organs or systems; Z82.49 Family history of ischemic heart disease and other diseases of the circulatory system
CPT/HCPCS: 85025; 88300

== ENCOUNTER → 2020-09-09 | Outpatient (CLI) | payer BC ==
--- NOTE | 2020-09-09 10:00 | ECHOF ---
Referral Reason:R06.02 Shortness of breath MEASUREMENTS -------- HEIGHT: 177.8 cm WEIGHT: 125.2 kg BP: RVIDd: 3.1 cm (< 3.3) IVSd: 1.5 cm (0.6 - 1.1) LVIDd: 3.8 cm (3.9 - 5.3) LVPWd: 1.6 cm (0.6 - 1.1) IVSs: 2.2 cm LVIDs: 2.6 cm LVPWs: 2.2 cm LAESV Index (A-L): 26.60 ml/m Ao Diam: 3.7 cm (2.0 - 3.7) AV Cusp: 2.4 cm (1.5 - 2.6) MV EXCURSION: 22.703 mm (> 18.000) MV EF SLOPE: 116 mm/s (70 - 150) EPSS: 1.5 cm MV E Adeel: 0.80 m/s MV DecT: 217 ms MV A Adeel: 1.00 m/s MV E/A Ratio: 0.80 RAP: 5.00 mmHg RVSP: 20.94 mmHg FINDINGS -------- This was a technically adequate study. The left ventricular size is normal. There is moderate concentric left ventricular hypertrophy. O verall left ventricular systolic function is normal with, an EF between 55 - 60 %. The diastolic fi lling pattern is normal for the age of the patient 12.81. The right ventricle is normal in size. Normal LA size by volume 22+/-6 ml/m2. The right atrial size is normal. Interatrial and interventricular septum intact. There is no evidence of aortic regurgitation. There is no evidence of aortic stenosis. No mitral regurgitation. Mild tricuspid regurgitation present. There is no evidence of pulmonary hypertension. The right v entricular systolic pressure, as measured by Doppler, is 20.94mmHg. There is no pulmonic regurgitation present. The aortic root size is normal. IVC Not well visulized. There is no pericardial effusion. CONCLUSIONS -------- 1. The left ventricular size is normal. 2. There is moderate concentric left ventricular hypertrophy. 3. Overall left ventricular systolic function is normal with, an EF between 55 - 60 %. 4. The diastolic filling pattern is normal for the age of the patient 12.81 5. Mild tricuspid regurgitation present. DIRECTOR OF MEDICAL REVIEW: Shreya Zuluaga RDCS
--- NOTE | 2020-09-09 10:10 | P.STRESS ---
- Stress Test Note Stress Test Results/Findings: Exam Performed: stress test Exam Date: 09/09/20 Reason for Exam: SHORTNESS OF BREATH Height: 5 ft 10 in Weight: 122.47 kg Protocol: HARRY Stage: 3 Duration of Exercise: 6:30 Resting Heart Rate: 66 Resting Blood Pressure: 125/86 Maximum Achieved Heart Rate: 141 Maximum Achieved Blood Pressure: 177/85 85% PMHR: 139 100% PMHR: 164 METS: 7.9 Technologist Comment: Stress Test Results/Findings: This is a 54-year-old gentleman being evaluated for symptoms of chest pain. Patient has history of hypertension and hypercholesterolemia. Stress data: Baseline EKG showed sinus rhythm with all when necessary procrastination. Blood pressure at rest is 125/86 with pulse rate of 66. Patient walked on the Harry protocol for 6 minutes and 30 seconds achieving a maximum heart rate of 141 with a blood pressure of 137/80. EKGs taken during and after exercise did not reveal any significant changes of ischemia. Patient complained of some chest pain and shortness of breath. Patient has achieved 86% of the predicted heart rate. The Final impression: #1. Negative stress test #2. Patient did complain of chest pain and shortness of breath with exercise, unassociated with any EKG changes #3. Below average, exercise capacity before. No arrhythmias noted.
== END | disposition home or self-care (01) ==
LOC: RADNMMAIN 08:11
PROVIDERS: ATTEND Family Medicine
DX: I07.1 Rheumatic tricuspid insufficiency (principal); R06.02 Shortness of breath; R07.9 Chest pain, unspecified
CPT/HCPCS: 93017; 93306

== ENCOUNTER → 2020-09-16 | Outpatient (CLI) | payer BC ==
--- NOTE | 2020-09-16 22:10 | FL ---
EXAMINATION TYPE: FL barium swallow w video DATE OF EXAM: 09/16/2020 MODIFIED BARIUM SWALLOW FLUOROSCOPY EXAM CLINICAL HISTORY: Dysphagia. TECHNIQUE: Notified barium swallow study is performed utilizing thin liquid barium, honey and nectar thick liquid barium, barium thick puree, and barium coated cracker. COMPARISON: None. FINDINGS: The oral and pharyngeal phases show satisfactory initiation and propagation with all modali ties tested. Normal mastication is seen with solid modalities tested. There is no evidence of penet ration or aspiration with any modality tested. No significant pharyngeal residue was appreciated. Total fluoroscopy time 1 minute 5 seconds IMPRESSION: No evidence of penetration or aspiration. Please refer to speech therapist notes for fu rther details if necessary.
== END | disposition home or self-care (01) ==
LOC: RADFLMAIN 11:15
PROVIDERS: ATTEND Surgery
DX: R13.10 Dysphagia, unspecified (principal)
CPT/HCPCS: 74230

== ENCOUNTER → 2020-09-26 | Outpatient (CLI) | payer BC ==
--- NOTE | 2020-09-26 11:04 | FL ---
EXAMINATION TYPE: FL barium swallow DATE OF EXAM: 09/26/2020 CLINICAL INDICATION: 54-year-old male with mid chest pain after swallowing for 2 months. R13.10, dysp hagia. COMPARISON: None Total Flouroscopy Time: 2 minutes 7 seconds. Total images: 42. FINDINGS: C4-C6 ACDF is demonstrated. The swallowing mechanism is normal and hypopharyngeal anatomy is preserve d. The cervical and thoracic portions have a normal course and caliber. However, there is esophageal dysmotility with loss of the normal secondary stripping waves and mild t o moderate tertiary peristaltic contractions. There is persistent contrast column along the entire es ophagus when the patient is prone/supine. The patient has to be brought upright and given some water to promote clearing of the esophagus. The mucosa is normal and no persistent filling defect is encountered. No hiatal hernia is present. No gastroesophageal reflux is identified. IMPRESSION: Moderate esophageal dysmotility with loss of the normal secondary stripping waves. When the patient i s prone/supine, there is a persistent contrast column along the entire esophagus and the patient has to be brought upright and given water to promote clearing from the esophagus. No hiatal hernia, stricture, or mucosal lesion.
== END | disposition home or self-care (01) ==
LOC: RADUSWWP 09:45
PROVIDERS: ATTEND Surgery
DX: K22.4 Dyskinesia of esophagus (principal)
CPT/HCPCS: 74220

== ENCOUNTER 2020-12-03 03:47 | Inpatient (IN) | payer BC ==
[2020-12-03] MEDS ORDERED: DEXAMETHASONE SOD PHOSPHATE 10 MG/ML 1 ML VIAL IV STA (03:59)
[2020-12-03] MEDS ORDERED: SODIUM CHLORIDE 0.9% 1,000 ML IV STA ×2 (03:59)
[2020-12-03] MEDS ORDERED: KETOROLAC 15 MG/ML 1 ML VIAL IVP STA (03:59)
[2020-12-03] MEDS ORDERED: ACETAMINOPHEN TAB 500 MG TAB PO STA (03:59)
--- NOTE | 2020-12-03 04:00 | ED ---
URI HPI - General Chief Complaint: Upper Respiratory Infection Stated Complaint: +COVID, SOB Time Seen by Provider: 12/03/20 03:59 Source: patient, RN notes reviewed, old records reviewed Mode of arrival: ambulatory Limitations: no limitations - History of Present Illness MD Complaint: fever, cough, other (sob) -: unknown (known positive COVID) Severity: moderate Severity scale (1-10): 7 Quality: aching Consistency: constant Improves With: nothing Worsens With: nothing Context: sick contacts, new medications Associated Symptoms: fever, chills, myalgias, nasal congestion, sore throat, cough, shortness of breath, right sweats Treatments Prior to Arrival: none - Related Data Home Medications Medication Instructions Recorded Confirmed Simvastatin [Zocor] 20 mg PO HS 07/07/16 12/03/20 Omeprazole 20 mg PO DAILY 04/25/19 12/03/20 Acetaminophen Tab [Tylenol] 650 mg PO Q4H PRN 12/03/20 12/03/20 Albuterol Sulfate [Ventolin HFA] 1 - 2 puff INHALATION RT-Q6H PRN 12/03/20 12/03/20 Amoxicillin 875 mg PO Q12HR 12/03/20 12/03/20 Benzonatate [Benzonatate Perle] 200 mg PO Q12H PRN 12/03/20 12/03/20 Carvedilol [Coreg] 25 mg PO BID 12/03/20 12/03/20 Ergocalciferol [Vitamin D2 (1250 1,250 mcg PO NOVAK 12/03/20 12/03/20 Mcg = [id number] Iu)] Fluticasone/Vilanterol [Breo 1 puff INHALATION RT-DAILY PRN 12/03/20 12/03/20 Ellipta 200-25 Mcg INH] Ibuprofen [Motrin] 800 mg PO BID PRN 12/03/20 12/03/20 hydroCHLOROthiazide [Hydrodiuril] 50 mg PO DAILY 12/03/20 12/03/20 lisinopriL [Zestril] 10 mg PO DAILY 12/03/20 12/03/20 Allergies Allergy/AdvReac Type Severity Reaction Status Date / Time shellfish derived [Shellfish] Allergy Rash/Hives Verified 12/03/20 06:12 Review of Systems ROS Statement: Those systems with pertinent positive or pertinent negative responses have been documented in the HPI. ROS Other: All systems not noted in ROS Statement are negative. Past Medical History Past Medical History: Hyperlipidemia, Hypertension Additional Past Medical History / Comment(s): FREQUENT NIGHT URINATION. History of Any Multi-Drug Resistant Organisms: None Reported Past Surgical History: Appendectomy, Cholecystectomy, Hernia Repair, Orthopedic Surgery, Tonsillectomy Additional Past Surgical History / Comment(s): 07/14/16 anterior cervical decompression and fusion C4-5, C5-6. Other surgical hx: kevin carpal tunnel, arthroscopy kevin knee, lump removed from neck, lasik eye surgery, kevin shoulder rotator cuff, vasectomy, Kevin Inguinal Hernia, Umbilical Hernia Past Anesthesia/Blood Transfusion Reactions: Family History of Problems w/ Anesthesia, Postoperative Nausea & Vomiting (PONV) Additional Past Anesthesia/Blood Transfusion Reaction / Comment(s): PT STATES HE WAKES UP ANGRY. PTS FATHER WOULD NOT WAKE UP AND HAD TO GO TO ICU DEPT. Past Psychological History: No Psychological Hx Reported Smoking Status: Never smoker Past Alcohol Use History: Occasional Past Drug Use History: None Reported - Past Family History Father Family Medical History: Cancer Additional Family Medical History / Comment(s): Colon and Prostate Cancer Mother Family Medical History: Cancer Additional Family Medical History / Comment(s): Mother had lung, breast and bone cancer. General Exam Limitations: no limitations General appearance: alert, in no apparent distress Head exam: Present: atraumatic, normocephalic, normal inspection Eye exam: Present: normal appearance, PERRL, EOMI. Absent: scleral icterus, conjunctival injection, periorbital swelling ENT exam: Present: normal exam, mucous membranes moist Neck exam: Present: normal inspection. Absent: tenderness, meningismus, lymphadenopathy Respiratory exam: Present: rhonchi. Absent: respiratory distress, wheezes, rales, stridor Cardiovascular Exam: Present: regular rate, normal rhythm, normal heart sounds. Absent: systolic murmur, diastolic murmur, rubs, gallop, clicks GI/Abdominal exam: Present: soft, normal bowel sounds. Absent: distended, tenderness, guarding, rebound, rigid Extremities exam: Present: normal inspection, full ROM, normal capillary refill. Absent: tenderness, pedal edema, joint swelling, calf tenderness Back exam: Present: normal inspection Neurological exam: Present: alert, oriented X3, CN II-XII intact Psychiatric exam: Present: normal affect, normal mood Skin exam: Present: warm, dry, intact, normal color. Absent: rash Course Vital Signs 12/03/20 12/03/20 12/03/20 03:49 04:47 05:00 Temperature 101.7 F H Pulse Rate 93 85 Respiratory 18 18 18 Rate Blood Pressure 128/70 120/71 O2 Sat by Pulse 93 L 93 L Oximetry 12/03/20 12/03/20 05:34 06:00 Temperature 99.8 F H Pulse Rate 68 Respiratory 18 Rate Blood Pressure 113/61 O2 Sat by Pulse 92 L Oximetry Medical Decision Making - Lab Data Result diagrams: 12/03/20 04:34 12/03/20 04:34 Lab Results 12/03/20 12/03/20 12/03/20 Range/Units 04:34 04:34 04:34 WBC 8.5 (3.8-10.6) k/uL RBC 5.16 (4.30-5.90) m/uL Hgb 14.6 (13.0-17.5) gm/dL Hct 43.5 (39.0-53.0) % MCV 84.3 (80.0-100.0) fL MCH 28.3 (25.0-35.0) pg MCHC 33.6 (31.0-37.0) g/dL RDW 14.2 (11.5-15.5) % Plt Count 205 (150-450) k/uL MPV 7.3 Neutrophils % 78 % Lymphocytes % 13 % Monocytes % 7 % Eosinophils % 0 % Basophils % 0 % Neutrophils # 6.6 (1.3-7.7) k/uL Lymphocytes # 1.1 (1.0-4.8) k/uL Monocytes # 0.6 (0-1.0) k/uL Eosinophils # 0.0 (0-0.7) k/uL Basophils # 0.0 (0-0.2) k/uL PT 9.8 (9.0-12.0) sec INR 0.9 (<1.2) APTT 22.0 (22.0-30.0) sec Sodium 134 L (137-145) mmol/L Potassium 3.8 (3.5-5.1) mmol/L Chloride 99 (98-107) mmol/L Carbon Dioxide 28 (22-30) mmol/L Anion Gap 7 mmol/L BUN 25 H (9-20) mg/dL Creatinine 0.93 (0.66-1.25) mg/dL Est GFR (CKD-EPI)AfAm >90 (>60 ml/min/1.73 sqM) Est GFR (CKD-EPI)NonAf >90 (>60 ml/min/1.73 sqM) Glucose 117 H (74-99) mg/dL Plasma Lactic Acid Dane (0.7-2.0) mmol/L Calcium 8.4 (8.4-10.2) mg/dL Magnesium 1.7 (1.6-2.3) mg/dL Total Bilirubin 0.9 (0.2-1.3) mg/dL AST 35 (17-59) U/L ALT 44 (4-49) U/L Alkaline Phosphatase 74 (38-126) U/L Lactate Dehydrogenase 662 H (313-618) U/L C-Reactive Protein 11.9 H (<10.0) mg/L Total Protein 6.7 (6.3-8.2) g/dL Albumin 3.6 (3.5-5.0) g/dL 12/03/20 Range/Units 04:34 WBC (3.8-10.6) k/uL RBC (4.30-5.90) m/uL Hgb (13.0-17.5) gm/dL Hct (39.0-53.0) % MCV (80.0-100.0) fL MCH (25.0-35.0) pg MCHC (31.0-37.0) g/dL RDW (11.5-15.5) % Plt Count (150-450) k/uL MPV Neutrophils % % Lymphocytes % % Monocytes % % Eosinophils % % Basophils % % Neutrophils # (1.3-7.7) k/uL Lymphocytes # (1.0-4.8) k/uL Monocytes # (0-1.0) k/uL Eosinophils # (0-0.7) k/uL Basophils # (0-0.2) k/uL PT (9.0-12.0) sec INR (<1.2) APTT (22.0-30.0) sec Sodium (137-145) mmol/L Potassium (3.5-5.1) mmol/L Chloride (98-107) mmol/L Carbon Dioxide (22-30) mmol/L Anion Gap mmol/L BUN (9-20) mg/dL Creatinine (0.66-1.25) mg/dL Est GFR (CKD-EPI)AfAm (>60 ml/min/1.73 sqM) Est GFR (CKD-EPI)NonAf (>60 ml/min/1.73 sqM) Glucose (74-99) mg/dL Plasma Lactic Acid Dane 1.6 (0.7-2.0) mmol/L Calcium (8.4-10.2) mg/dL Magnesium (1.6-2.3) mg/dL Total Bilirubin (0.2-1.3) mg/dL AST (17-59) U/L ALT (4-49) U/L Alkaline Phosphatase (38-126) U/L Lactate Dehydrogenase (313-618) U/L C-Reactive Protein (<10.0) mg/L Total Protein (6.3-8.2) g/dL Albumin (3.5-5.0) g/dL - EKG Data -: EKG Interpreted by Me (EKG is sinus rhythm 84 NC 156 QRS 82 QTC 418) Disposition Clinical Impression: Fever, Coronavirus infection, Pneumonia due to COVID-19 virus Disposition: ADMITTED IP TO THIS HOSP Condition: Fair Is patient prescribed a controlled substance at d/c from ED?: No
--- NOTE | 2020-12-03 04:16 | XR ---
EXAM: XR Chest, 1 View CLINICAL HISTORY: ITS.REASON XR Reason: Suspected COVID-19 pneumonia TECHNIQUE: Frontal view of the chest. COMPARISON: Chest x-ray 07/16/2020 FINDINGS: Lungs: Suspected left perihilar and right lower lung airspace opacities which may be infectious. Pleural space: Unremarkable. Heart: Unremarkable. Mediastinum: Unremarkable. Bones/joints: Fusion hardware noted within the cervical spine. IMPRESSION: Suspected left perihilar and right lower lung airspace opacities which may be infectious.
[2020-12-03] MEDS ORDERED: ALBUTEROL HFA INHALER INHALATION STA (04:48)
[2020-12-03 04:52] LABS: Basophils % (A) 0 %; Eosinophils % (A) 0 %; HCT 43.5 % (39.0-53.0); HGB 14.6 gm/dL (13.0-17.5); Lymphocytes # (A) 1.1 k/uL (1.0-4.8); Lymphocytes % (A) 13 %; MCH 28.3 pg (25.0-35.0); MCHC 33.6 g/dL (31.0-37.0); MCV 84.3 fL (80.0-100.0); Mean Platelet Volume 7.3; Monocytes # (A) 0.6 k/uL (0-1.0); Monocytes % (A) 7 %; Neutrophils # (A) 6.6 k/uL (1.3-7.7); Neutrophils % (A) 78 %; Platelet Count 205 k/uL (150-450); RBC 5.16 m/uL (4.30-5.90); RDW 14.2 % (11.5-15.5); WBC 8.5 k/uL (3.8-10.6)
[2020-12-03 04:57] LABS: ALT 44 U/L (4-49); AST 35 U/L (17-59); African American GFR (CKD) >90 (>60 ml/min/1.73 sqM); Albumin 3.6 g/dL (3.5-5.0); Alkaline Phosphatase 74 U/L (38-126); Anion Gap 7 mmol/L; Blood Urea Nitrogen 25 mg/dL (9-20); C Reactive Protein 11.9 mg/L (<10.0); Calcium 8.4 mg/dL (8.4-10.2); Carbon Dioxide 28 mmol/L (22-30); Chloride 99 mmol/L (98-107); Glucose 117 mg/dL (74-99); LDH 662 U/L (313-618); Magnesium 1.7 mg/dL (1.6-2.3); Non-African American GFR(CKD) >90 (>60 ml/min/1.73 sqM); Potassium 3.8 mmol/L (3.5-5.1); Sodium 134 mmol/L (137-145); Total Bilirubin 0.9 mg/dL (0.2-1.3); Total Protein 6.7 g/dL (6.3-8.2)
[2020-12-03 05:03] LABS: INR 0.9 (<1.2); Prothrombin Time 9.8 sec (9.0-12.0)
[2020-12-03] MEDS ORDERED: carvediloL 12.5 MG TAB PO STA (06:32)
[2020-12-03] MEDS ORDERED: ATORVASTATIN 20 MG TAB PO STA (06:32)
[2020-12-03] MEDS: ALBUTEROL HFA INHALER INHALATION SCH ×4 (08:57→19:27)
[2020-12-03] MEDS ORDERED: carvediloL 12.5 MG TAB PO SCH (09:00)
[2020-12-03] MEDS ORDERED: hydroCHLOROthiazide 25 MG TAB PO ONE (09:00)
[2020-12-03] MEDS ORDERED: lisinopriL 10 MG TAB PO SCH (09:00)
[2020-12-03] MEDS: ENOXAPARIN 40 MG/0.4 ML SYRINGE SQ SCH (10:43)
[2020-12-03] MEDS: ATORVASTATIN 20 MG TAB PO SCH (10:45)
--- NOTE | 2020-12-03 11:41 | P.CNPUL ---
History of Present Illness Consult date: 12/03/20 Reason for consult: pneumonia History of present illness: 64-year-old male patient who had the typical symptoms of over 19 related infection that started approximately 1 week. The patient lost his taste and smell and he had fever along with nausea vomiting and some diarrhea. He was managing himself well at home. He started getting progressively more short of breath and he developed some increased coffee end up coming to the hospital. His chest that showed some infiltration of the left lung and some hazy infiltration of the right and the patient's pulse ox was dropping down to 91% on room air oxygen. He was hospitalized. Note that the patient was receiving prednisone burst taper on outpatient basis given to him by his primary care physician. He is awake and alert. She is following commands and answering questions. No new complaints otherwise for now. He feels that his lungs are round and water and he is having some increased shortness of breath. The LDH level 662, a CRP level was 11.9, the rest of the blood work was essentially within normal limits. No thrombocytopenia. No lymphopenia. Coagulation profile was normal. D-dimer was not checked. Review of Systems Constitutional: Reports fatigue, Reports fever, Reports lethargy, Reports weakness Eyes: denies as per HPI, denies blurred vision, denies bulging eye, denies decreased vision, denies diplopia, denies discharge, denies dry eye, denies irritation, denies itching, denies pain, denies photophobia, denies loss of peripheral vision, denies loss of vision, denies tunnel vision/blind spots Ears, nose, mouth and throat: Denies headache, Denies sore throat Breasts: absent: as per HPI, gynecomastia Cardiovascular: Reports decreased exercise tolerance, Reports dyspnea on exertion Respiratory: Reports cough, Reports dyspnea Gastrointestinal: Reports as per HPI Genitourinary: Reports as per HPI Musculoskeletal: Reports as per HPI Musculoskeletal: absent: ankle pain, ankle stiffness, ankle swelling Integumentary: Reports as per HPI Neurological: Reports as per HPI, Reports weakness Psychiatric: Reports as per HPI Endocrine: Reports as per HPI, Reports fatigue Hematologic/Lymphatic: Reports as per HPI Allergic/Immunologic: Reports as per HPI Past Medical History Past Medical History: Hyperlipidemia, Hypertension, Sleep Apnea/CPAP/BIPAP Additional Past Medical History / Comment(s): FREQUENT NIGHT URINATION. History of Any Multi-Drug Resistant Organisms: None Reported Past Surgical History: Appendectomy, Cholecystectomy, Hernia Repair, Orthopedic Surgery, Tonsillectomy Additional Past Surgical History / Comment(s): 07/14/16 anterior cervical decompression and fusion C4-5, C5-6. Other surgical hx: kevin carpal tunnel, arthroscopy kevin knee, lump removed from neck, lasik eye surgery, kevin shoulder rotator cuff, vasectomy, Kevin Inguinal Hernia, Umbilical Hernia Past Anesthesia/Blood Transfusion Reactions: Family History of Problems w/ Anesthesia, Postoperative Nausea & Vomiting (PONV) Additional Past Anesthesia/Blood Transfusion Reaction / Comment(s): PT STATES HE WAKES UP ANGRY. PTS FATHER WOULD NOT WAKE UP AND HAD TO GO TO ICU DEPT. Past Psychological History: No Psychological Hx Reported Smoking Status: Never smoker Past Alcohol Use History: Occasional Past Drug Use History: None Reported - Past Family History Father Family Medical History: Cancer Additional Family Medical History / Comment(s): Colon and Prostate Cancer Mother Family Medical History: Cancer Additional Family Medical History / Comment(s): Mother had lung, breast and bone cancer. Medications and Allergies Home Medications Medication Instructions Recorded Confirmed Type Simvastatin [Zocor] 20 mg PO HS 07/07/16 12/03/20 History Omeprazole 20 mg PO DAILY 04/25/19 12/03/20 History Acetaminophen Tab [Tylenol] 650 mg PO Q4H PRN 12/03/20 12/03/20 History Albuterol Sulfate [Ventolin HFA] 1 - 2 puff INHALATION RT-Q6H PRN 12/03/20 12/03/20 History Amoxicillin 875 mg PO Q12HR 12/03/20 12/03/20 History Benzonatate [Benzonatate Perle] 200 mg PO Q12H PRN 12/03/20 12/03/20 History Carvedilol [Coreg] 25 mg PO BID 12/03/20 12/03/20 History Ergocalciferol [Vitamin D2 (1250 1,250 mcg PO NOVAK 12/03/20 12/03/20 History Mcg = 33878 Iu)] Fluticasone/Vilanterol [Breo 1 puff INHALATION RT-DAILY PRN 12/03/20 12/03/20 History Ellipta 200-25 Mcg INH] Ibuprofen [Motrin] 800 mg PO BID PRN 12/03/20 12/03/20 History hydroCHLOROthiazide [Hydrodiuril] 50 mg PO DAILY 12/03/20 12/03/20 History lisinopriL [Zestril] 5 mg PO DAILY 12/03/20 12/03/20 History Allergies Allergy/AdvReac Type Severity Reaction Status Date / Time shellfish derived [Shellfish] Allergy Rash/Hives Verified 12/03/20 06:12 Physical Exam Vitals: Vital Signs Temp Pulse Pulse Resp BP BP Pulse Ox 12/03/20 08:04 98.7 F 71 19 124/74 92 L 12/03/20 08:00 15 12/03/20 07:54 98.7 F 12/03/20 07:36 96 12/03/20 07:00 99.5 F 69 18 108/62 92 L 12/03/20 06:00 68 18 113/61 92 L 12/03/20 05:34 99.8 F H 12/03/20 05:00 85 18 120/71 93 L 12/03/20 04:47 18 12/03/20 03:49 101.7 F H 93 18 128/70 93 L Intake and Output 12/02/20 12/03/20 12/03/20 22:59 06:59 14:59 Other: Weight 127.006 kg The patient appeared well nourished and normally developed. Vital signs as documented. Head exam is unremarkable. No scleral icterus or corneal arcus noted. Neck is without jugular venous distension, thyromegaly, or carotid bruits. Carotid upstrokes are brisk bilaterally. Lungs are clear to auscultation and percussion. Cardiac exam reveals the PMI to be normally sized and situated. Rhythm is regular. First and second heart sounds normal. No murmurs, rubs or gallops. Abdominal exam reveals normal bowel sounds, no masses, no organomegaly and no aortic enlargement. Extremities are nonedematous and both femoral and pedal pulses are normal.Examination of the skin revealed no evidence of significant rashes, suspicious appearing nevi or other concerning lesions.Neurologically, the patient is awake and alert and the patient does not have any focal neurological deficit. Cranial nerves are essentially intact. Results - Laboratory Findings CBC and BMP: 12/03/20 04:34 12/03/20 04:34 PT/INR, D-dimer PT 9.8 sec (9.0-12.0) 12/03/20 04:34 INR 0.9 (<1.2) 12/03/20 04:34 Abnormal lab findings: Abnormal Labs 12/03/20 04:34 Sodium 134 L BUN 25 H Glucose 117 H Lactate Dehydrogenase 662 H C-Reactive Protein 11.9 H - Diagnostic Findings Chest x-ray: image reviewed Assessment and Plan Plan: 1 Acute COVID 19 related pneumonia with mild hypoxemia and shortness of breath and cough 2 acute hypoxic respiratory failure and the patient is currently on 91% on room air. 3 shortness of breath secondary to above 4 mild inflammatory marker rise secondary to Covid 19 related pneumonia/infection 5 obstructive sleep apnea, AHI of 13 and the patient is demented on APAP minimum pressure of 5 and a maximal pressure 15 6 obesity 7 hypertension Plan Initiate Decadron 6 mg by mouth daily in combination with Remdesivir Oxygenation and maintain a saturation above 90% Utilize the various supplements including vitamin C, vitamin D, zinc and Pepcid and melatonin Lovenox 40 mg subcu for DVT prophylaxis and obtain a d-dimer We'll continue to follow.
[2020-12-03] MEDS ORDERED: REMDESIVIR 200 MG in SODIUM CHLORIDE 0.9% 250 ML IVPB ONE (12:00)
[2020-12-03] MEDS ORDERED: Potassium Replacement Protocol 1 EACH MISC MISCELLANE PRN (12:44)
[2020-12-03] MEDS ORDERED: POTASSIUM CHLORIDE ER 20 MEQ TAB.ER PO SCH (13:00)
--- NOTE | 2020-12-03 13:44 | P.HPIM ---
History of Present Illness H&P Date: 12/03/20 Chief Complaint: CHANTEL HISTORY OF PRESENT ILLNESS This is a 54-year-old male patient of Dr. Spencer with past medical history of hypertension, hyperlipidemia, obstructive sleep apnea with CPAP on the care of Dr. Browning. Patient gives history that he was diagnosed on November 25 with: 19 that was done at [facility]. The previous weekend he was with a friend and on Tuesday he received a call that his friend was diagnosed with positive Covid 19. He has been in quarantine at home. On Tuesday his also tested positive. Patient did not develop symptoms until Tuesday which included fever, shortness of breath cough with white sputum production as well as nausea, vomiting diarrhea. His rest of her symptoms seem to worsen and s hortness of breath was significantly bad yesterday and he decided to come into the hospital. Subsequently the nausea vomiting and diarrhea have resolved. He denies abdominal pain. He does not have home oxygen. Patient presented to [facility] emergency center for evaluation. Temperature 101.7. Heart rate 93, blood pressure 120/70, pulse ox 93% on room air. CBC was unremarkable. D-dimer 0.73. BUN 25 and creatinine 0.93. Blood sugar 117. Liver function tests normal. LDH 662. C-reactive protein 11.9. EKG is a normal sinus rhythm with no ST changes. Chest x-ray reveals suspected left perihilar and right lower lobe airspace opacities which may be infectious. Patient admitted to the [facility] floor and consult with pulmonary medicine and infectious disease. REVIEW OF SYSTEMS Constitutional: Reports fever, Reports chills, no night sweats. No weight change. Reports weakness, Reports fatigue or lethargy. No daytime sleepiness. EENT: No headache. No blurred vision or double vision, no loss of vision. No loss of Hearing, no ringing in the ears, no dizziness. No nasal drainage or congestion. No epistaxis. No sore throat. Lungs: Reports shortness of breath, Reports cough, Reports sputum production. No wheezing. Cardiovascular: No chest pain, no lower extremity edema. No palpitations. No paroxysmal nocturnal dyspnea. No orthopnea. No lightheadedness or dizziness. No syncopal episodes. Abdominal: No abdominal pain. No nausea, vomiting. No diarrhea. No constipation. No bloody or tarry stools.. No loss of appetite. Genitourinary: No dysuria, increased frequency, urgency. No urinary retention. Musculoskeletal: No myalgias. No muscle weakness, no gait dysfunction, no frequent falls. No back pain. No neck pain. Integumentary: No wounds, no lesions. No rash or pruritus. No unusual bruising. No change in hair or nails. Neurologic: No aphasia. No facial droop. No change in mentation. No head injury. No headache. No paralysis. No paresthesia. Psychiatric: No depression. No anxiety. No mood swings. Endocrine: No abnormal blood sugars. No weight change. No excessive sweating or thirst. No cold intolerance. SOCIAL HISTORY Patient is a lifelong nonsmoker. He drinks beer occasionally. No illicit drug use or marijuana use. He is and lives at home with his . He works in [employer] for the [employer]. FAMILY HISTORY Mother at age 60 from breast cancer with metastatic disease. Father at age 90 from old age. Patient has 5 siblings with no major medical problems. Patient has one son with no major medical problems. PHYSICAL EXAMINATION Gen: This is a 54-year-old male. He is resting in bed and appears to be in no acute distress. No oxygen in use. HEENT: Head is atraumatic, normocephalic. Pupils equal, round. Sclerae is anicteric. NECK: Supple. No JVD. No lymphadenopathy. No thyromegaly. LUNGS: Clear to auscultation. No wheezes or rhonchi. No intercostal retra ctions. HEART: Regular rate and rhythm. No murmur. ABDOMEN: Soft. Bowel sounds are present. No masses. No tenderness. EXTREMITIES: No pedal edema. No calf tenderness. NEUROLOGICAL: Patient is awake, alert and oriented x3. Cranial nerves 2 through 12 are grossly intact. ASSESSMENT AND PLAN 1. Acute Covid 19 pneumonia. Consult with pulmonary medicine. Pulmonary medic ine who started the patient on Remdesivir. Continue vitamin C, zinc, dexamethasone 6 mg oral daily, Lovenox 40 mg subcu daily. 2. History of obstructive sleep apnea. Continue CPAP. 3. Hypertension. Continue Coreg 25 mg twice daily, hydrochlorothiazide 50 mg daily, lisinopril 10 mg daily 4. Hyperlipidemia. Continue simvastatin 20 mg at bedtime. 5. Gastroesophageal reflux disease. Continue omeprazole 20 mg daily. 6. DVT prophylaxis. Lovenox. Patient will be admitted to the hospital for a minimum of 2 night stay. DISCHARGE PLAN Home. Impression and plan of care have been directed as dictated by the signing physician. Jacqui Serna nurse practitioner acting as scribe for signing physician. Past Medical History Past Medical History: Hyperlipidemia, Hypertension Additional Past Medical History / Comment(s): FREQUENT NIGHT URINATION. History of Any Multi-Drug Resistant Organisms: None Reported Past Surgical History: Appendectomy, Cholecystectomy, Hernia Repair, Orthopedic Surgery, Tonsillectomy Additional Past Surgical History / Comment(s): 07/14/16 anterior cervical decompression and fusion C4-5, C5-6. Other surgical hx: kevin carpal tunnel, arthroscopy kevin knee, lump removed from neck, lasik eye surgery, kevin shoulder rotator cuff, vasectomy, Kevin Inguinal Hernia, Umbilical Hernia Past Anesthesia/Blood Transfusion Reactions: Family History of Problems w/ Anesthesia, Postoperative Nausea & Vomiting (PONV) Additional Past Anesthesia/Blood Transfusion Reaction / Comment(s): PT STATES HE WAKES UP ANGRY. PTS FATHER WOULD NOT WAKE UP AND HAD TO GO TO ICU DEPT. Past Psychological History: No Psychological Hx Reported Smoking Status: Never smoker Past Alcohol Use History: Occasional Past Drug Use History: None Reported - Past Family History Father Family Medical History: Cancer Additional Family Medical History / Comment(s): Colon and Prostate Cancer Mother Family Medical History: Cancer Additional Family Medical History / Comment(s): Mother had lung, breast and bone cancer. Medications and Allergies Home Medications Medication Instructions Recorded Confirmed Type Simvastatin [Zocor] 20 mg PO HS 07/07/16 12/03/20 History Omeprazole 20 mg PO DAILY 04/25/19 12/03/20 History Acetaminophen Tab [Tylenol] 650 mg PO Q4H PRN 12/03/20 12/03/20 History Albuterol Sulfate [Ventolin HFA] 1 - 2 puff INHALATION RT-Q6H PRN 12/03/20 12/03/20 History Amoxicillin 875 mg PO Q12HR 12/03/20 12/03/20 History Benzonatate [Benzonatate Perle] 200 mg PO Q12H PRN 12/03/20 12/03/20 History Carvedilol [Coreg] 25 mg PO BID 12/03/20 12/03/20 History Ergocalciferol [Vitamin D2 (1250 1,250 mcg PO NOVAK 12/03/20 12/03/20 History Mcg = [id number] Iu)] Fluticasone/Vilanterol [Breo 1 puff INHALATION RT-DAILY PRN 12/03/20 12/03/20 History Ellipta 200-25 Mcg INH] Ibuprofen [Motrin] 800 mg PO BID PRN 12/03/20 12/03/20 History hydroCHLOROthiazide [Hydrodiuril] 50 mg PO DAILY 12/03/20 12/03/20 History lisinopriL [Zestril] 5 mg PO DAILY 12/03/20 12/03/20 History Allergies Allergy/AdvReac Type Severity Reaction Status Date / Time shellfish derived [Shellfish] Allergy Rash/Hives Verified 12/03/20 06:12 Physical Exam Vitals: Vital Signs Temp Pulse Pulse Resp BP BP Pulse Ox 12/03/20 08:04 98.7 F 71 19 124/74 92 L 12/03/20 08:00 15 12/03/20 07:54 98.7 F 12/03/20 07:36 96 12/03/20 07:00 99.5 F 69 18 108/62 92 L 12/03/20 06:00 68 18 113/61 92 L 12/03/20 05:34 99.8 F H 12/03/20 05:00 85 18 120/71 93 L 12/03/20 04:47 18 12/03/20 03:49 101.7 F H 93 18 128/70 93 L Intake and Output 12/02/20 12/03/20 12/03/20 22:59 06:59 14:59 Other: Weight 127.006 kg Results CBC & Chem 7: 12/03/20 04:34 12/03/20 04:34 Labs: Abnormal Lab Results - Last 24 Hours (Table) 12/03/20 Range/Units 04:34 Sodium 134 L (137-145) mmol/L BUN 25 H (9-20) mg/dL Glucose 117 H (74-99) mg/dL Lactate Dehydrogenase 662 H (313-618) U/L C-Reactive Protein 11.9 H (<10.0) mg/L Thrombosis Risk Factor Assmnt - Choose All That Apply Each Factor Represents 1 point: Age 41-60 years, Obesity (BMI >25) Thrombosis Risk Factor Assessment Total Risk Factor Score: 2 Thrombosis Risk Factor Assessment Level: Low Risk
[2020-12-03] MEDS: carvediloL 12.5 MG TAB PO SCH (15:21)
--- NOTE | 2020-12-03 23:38 | CONS ---
CONSULTATION DATE OF SERVICE: 12/03/2020. REASON FOR CONSULTATION: Covid 19 pneumonia. HISTORY OF PRESENT ILLNESS: The patient is a 54-year-old male who started getting sick about 10 days ago on Tuesday in this patient who started having symptoms mostly of weakness nausea and vomiting along with diarrhea and loss of his taste and smell. Apparently the patient was with his friend's house the night before and he did test positive for Covid as well. The patient subsequently tested positive for Covid and has been treated by his primary care physician with the patient has been given steroids. However, the patient mentioned he started feeling better a few days ago, however in the last day or two, he started having increasing shortness of breath and chest pressure like his legs feeling out of order. The patient did have shortness of breath on minimal exertion. The patient did have some nausea but no vomiting. He did have diarrhea initially that seemed to have resolved. No further diarrhea. With these symptoms, the patient presented to the hospital. On arrival to the ER, the patient did have fever of 101.7 degrees Fahrenheit. The patient did have hypoxemia with O2 saturation 93% at 1.9 88% on room air. The patient did have a normal white count. No lymphopenia. D-dimer is 0.73. Liver enzymes are normal. CRP is 11.9. Chest x-ray with bilateral infiltrate. Patient has been diagnosed with acute COVID-19 pneumonia. Pulmonary has evaluated the patient already and has started him on Remdesivir in addition to the Lovenox, zinc, dexamethasone, vitamin C. Infectious Disease was consulted for further management. REVIEW OF SYSTEMS: Positive points have been mentioned in HPI. Rest of the systems are negative. PAST MEDICAL HISTORY: He has past medical history of hypertension, and hyperlipidemia. PAST SURGICAL HISTORY: Appendectomy cholecystectomy, hernia repair and cervical decompression and fusion, bilateral carpal tunnel surgery. SOCIAL HISTORY: No history of smoking. Occasionally drinks. No drug use. FAMILY HISTORY: No pertinent findings noticed. ALLERGIES: No known drug allergies. MEDICATIONS: Include the patient is currently on Ventolin, vitamin C, Lipitor, Coreg, Dexamethasone, Lovenox, hydrochlorothiazide, Zestril, Remdesivir and zinc. PHYSICAL EXAMINATION: Blood pressure 104/52 with a pulse of 73, temperature 98.6, and he is 96% on 3 L. General description is a middle-aged male lying in bed in no distress. No tachypnea or accessory muscles of respiration use. HEENT: Examination shows no pallor or scleral icterus. Oral mucosal membranes are dry. NECK: Trachea. No thyromegaly. LUNGS: Unlabored breathing, decreased intensity of breath sounds. No wheeze or crackles. HEART S1, S2. Regular rate and rhythm. ABDOMEN: Soft. No tenderness. No guarding. No rigidity. EXTREMITIES: No edema of the feet. SKIN examination: No rash or mass palpable. NEUROLOGICAL: Patient is awake, alert, oriented times three. Mood and affect normal. LABS: Hemoglobin is 14.3, white count 8.5, D. dimer 0.7, liver enzymes are normal. Creatinine 0.93 and CRP 11.9. Chest x-ray with bilateral infiltrates. DIAGNOSTIC IMPRESSION AND PLAN: Patient with acute Covid 19 infection. Symptoms have been going on for more than a week now. This patient seemed to have shown some improvement initially, but now having worsening shortness of breath, fever and evidence of hypoxemia with bilateral multifocal infiltrates. PLAN: 1. The patient will be continued on current treatment protocol including Remdesivir, dexamethasone, Zinc, Lovenox. 2. Droplet isolation, respiratory support. 3. No evidence of any secondary bacterial infection hence no need for antibiotics. 4. We will follow on his clinical condition and further adjust medication if needed. Thank you for this consultation. Will follow this patient along with you. MMODL / IJN: [id number] /
[2020-12-04 06:44] LABS: Basophils # (A) 0.1 k/uL (0-0.2); Basophils % (A) 1 %; Eosinophils % (A) 0 %; HCT 41.6 % (39.0-53.0); HGB 14.2 gm/dL (13.0-17.5); Lymphocytes % (A) 8 %; MCH 29.2 pg (25.0-35.0); MCHC 34.2 g/dL (31.0-37.0); MCV 85.5 fL (80.0-100.0); Mean Platelet Volume 7.1; Monocytes # (A) 0.8 k/uL (0-1.0); Monocytes % (A) 7 %; Neutrophils # (A) 10.2 k/uL (1.3-7.7); Neutrophils % (A) 83 %; Platelet Count 193 k/uL (150-450); RBC 4.86 m/uL (4.30-5.90); WBC 12.3 k/uL (3.8-10.6)
[2020-12-04] MEDS: ALBUTEROL HFA INHALER INHALATION SCH ×4 (07:25→20:02)
[2020-12-04] MEDS: ENOXAPARIN 40 MG/0.4 ML SYRINGE SQ SCH (07:53)
[2020-12-04] MEDS: ASCORBIC ACID 500 MG TAB PO SCH (07:54)
[2020-12-04] MEDS: dexAMETHasone 2 MG TAB PO SCH (07:54)
[2020-12-04] MEDS: ATORVASTATIN 20 MG TAB PO SCH (07:54)
[2020-12-04] MEDS: lisinopriL 5 MG TAB PO SCH (07:55)
[2020-12-04] MEDS: ZINC SULFATE 220 MG CAP PO SCH (07:55)
[2020-12-04] MEDS: carvediloL 12.5 MG TAB PO SCH ×2 (07:55→16:51)
--- NOTE | 2020-12-04 08:48 | P.PN ---
Subjective Progress Note Date: 12/04/20 HISTORY OF PRESENT ILLNESS This is a 54-year-old male patient of Dr. Spencer with past medical history of hypertension, hyperlipidemia, obstructive sleep apnea with CPAP on the care of Dr. Browning. Patient gives history that he was diagnosed on November 25 with: 19 that was done at [facility]. The previous weekend he was with a friend and on Tuesday he received a call that his friend was diagnosed with positive Covid 19. He has been in quarantine at home. On Tuesday his also tested positive. Patient did not develop symptoms until Tuesday which included fever, shortness of breath cough with white sputum production as well as nausea, vomiting diarrhea. His rest of her symptoms seem to worsen and shortness of breath was significantly bad yesterday and he decided to come into the hospital. Subsequently the nausea vomiting and diarrhea have resolved. He denies abdominal pain. He does not have home oxygen. Patient presented to [facility] emergency center for evaluation. Temperature 101.7. Heart rate 93, blood pressure 120/70, pulse ox 93% on room air. CBC was unremarkable. D-dimer 0.73. BUN 25 and creatinine 0.93. Blood sugar 117. Liver function tests normal. LDH 662. C-reactive protein 11.9. EKG is a normal sinus rhythm with no ST changes. Chest x-ray reveals suspected left perihilar and right lower lobe airspace opacities which may be infectious. Patient admitted to the [facility] floor and consult with pul monary medicine and infectious disease. 12/04: She was seen by pulmonary medicine and started on Remdesivir, day. 12/19. Patient is also on dexamethasone, Lovenox and supplements. Patient is also been seen by Dr. Flores with recommendations for no antibiotics as no evidence of secondary bacterial infection. Patient attempted to utilize CPAP last night but this causes him to cough and he was maintained on oxygen for the night. He is currently on room air with pulse ox of 95%. He appears to be comfortable and denies shortness of breath at rest. He does have a little cough. Repeat blood work reveals WBC 12.3. Chemistry panel is pending at the time of this dictation. REVIEW OF SYSTEMS Constitutional: Reports fever, Reports chills, no night sweats. No weight bronson ge. Reports weakness, Reports fatigue or lethargy. No daytime sleepiness. EENT: No headache. No blurred vision or double vision, no loss of vision. No loss of Hearing, no ringing in the ears, no dizziness. No nasal drainage or congestion. No epistaxis. No sore throat. Lungs: Reports very mild shortness of breath, Reports cough, Reports sputum production. No wheezing. Cardiovascular: No chest pain, no lower extremity edema. No palpitations. No paroxysmal nocturnal dyspnea. No orthopnea. No lightheadedness or dizziness. No syncopal episodes. Abdominal: No abdominal pain. No nausea, vomiting. No diarrhea. No constipation. No bloody or tarry stools.. No loss of appetite. Genitourinary: No dysuria, increased frequency, urgency. No urinary retention. Musculoskeletal: No myalgias. No muscle weakness, no gait dysfunction, no frequent falls. No back pain. No neck pain. Integumentary: No wounds, no lesions. No rash or pruritus. No unusual bruising. No change in hair or nails. Neurologic: No aphasia. No facial droop. No change in mentation. No head injury. No headache. No paralysis. No paresthesia. Psychiatric: No depression. No anxiety. Endocrine: No abnormal blood sugars. No weight change. No excessive sweating or thirst. No cold intolerance. PHYSICAL EXAMINATION Gen: This is a 54-year-old male. He is resting in bed and appears to be in no acute distress. No oxygen in use. HEENT: Head is atraumatic, normocephalic. Pupils equal, round. Sclerae is anicteric. NECK: Supple. No JVD. No lymphadenopathy. No thyromegaly. LUNGS: Clear to auscultation. No wheezes or rhonchi. No intercostal retractions. HEART: Regular rate and rhythm. No murmur. ABDOMEN: Soft. Bowel sounds are present. No masses. No tenderness. EXTREMITIES: No pedal edema. No calf tenderness. NEUROLOGICAL: Patient is awake, alert and oriented x3. Cranial nerves 2 through 12 are grossly intact. ASSESSMENT AND PLAN 1. Acute Covid 19 pneumonia. Consult with pulmonary medicine. Pulmonary medicine who started the patient on Remdesivir, day 2/5. Continue vitamin C, zinc, dexamethasone 6 mg oral daily, Lovenox 40 mg subcu daily. 2. History of obstructive sleep apnea. Continue CPAP. 3. Hypertension. Continue Coreg 25 mg twice daily, hydrochlorothiazide 50 mg daily, lisinopril 10 mg daily 4. Hyperlipidemia. Continue simvastatin 20 mg at bedtime. 5. Gastroesophageal reflux disease. Continue omeprazole 20 mg daily. 6. DVT prophylaxis. Lovenox. DISCHARGE PLAN Home. Impression and plan of care have been directed as dictated by the signing physician. Jacqui Serna nurse practitioner acting as scribe for signing physician. Objective - Vital Signs Vital signs: Vital Signs Temp 98.8 F 12/04/20 05:25 Pulse 67 12/04/20 05:25 Resp 15 12/04/20 05:25 BP 115/69 12/04/20 05:25 Pulse Ox 95 12/04/20 05:25 Intake & Output 12/03/20 12/04/20 12/04/20 18:59 06:59 18:59 Intake Total 1080 Balance 1080 Intake: Oral 1080 Other: Voiding Method Toilet # Voids 3 1 - Labs CBC & Chem 7: 12/04/20 06:05 12/03/20 04:34 Labs: Abnormal Lab Results - Last 24 Hours (Table) 12/03/20 12/04/20 Range/Units 11:54 06:05 WBC 12.3 H (3.8-10.6) k/uL Neutrophils # 10.2 H (1.3-7.7) k/uL D-Dimer 0.73 H (<0.60) mg/L FEU
[2020-12-04 09:34] LABS: African American GFR (CKD) 115.7 (60.0-200.0); Albumin 3.4 g/dL (3.80-4.90); Albumin/Globulin Ratio 1.62 (1.60-3.17); Anion Gap 8.3 mmol/L (4.00-12.00); BUN/Creat Ratio 28.75 Ratio (12.00-20.00); Calcium 8.4 mg/dL (8.7-10.3); Carbon Dioxide 26.7 mmol/L (21.6-31.8); Globulin 2.1 g/dL (1.6-3.3); Non-African American GFR(CKD) 99.9 (60.0-200.0); Potassium 4.1 mmol/L (3.5-5.5); Total Bilirubin 0.4 mg/dL (0.2-1.2); Total Protein 5.5 g/dL (6.2-8.2)
--- NOTE | 2020-12-04 12:10 | P.PN ---
Subjective Progress Note Date: 12/04/20 64-year-old male patient who had the typical symptoms of COVID19 related infection that started approximately 1 week. The patient lost his taste and smell and he had fever along with nausea vomiting and some diarrhea. He was managing himself well at home. He started getting progressively more short of breath and he developed some increased coffee end up coming to the hospital. His chest that showed some infiltration of the left lung and some hazy infiltration of the right and the patient's pulse ox was dropping down to 91% on room air oxygen. He was hospitalized. Note that the patient was receiving prednisone burst taper on outpatient basis given to him by his primary care physician. He is awake and alert. She is following commands and answering questions. No new complaints otherwise for now. He feels that his lungs are round and water and he is having some increased shortness of breath. The LDH level 662, a CRP level was 11.9, the rest of the blood work was essentially within normal limits. No thrombocytopenia. No lymphopenia. Coagulation profile was normal. D-dimer was not checked. 12/04/2020, the patient is still having some shortness of breath with limited amount of activity. Nevertheless he was able to maintain his pulse ox above 90%. He is not having any major desaturation and his oxygen pulse ox is okay at 94% today. I'm going to provide him an incentive spirometer. The patient is still on Decadron 6 mg by mouth daily and he was also started on Remdesivir and he is day #2 of treatment. The patient is having liquidy diarrhea. Some vague abdominal discomfort. These are his GI manifestations of Covid 19. Inflammatory markers were not checked today. The d-dimer is at 0.73 and the patient is on Lovenox for DVT prophylaxis 40 mg subcu on a daily basis. Objective - Vital Signs Vital signs: Vital Signs Temp 98.5 F 12/04/20 09:39 Pulse 60 12/04/20 09:39 Resp 20 12/04/20 09:39 BP 138/77 12/04/20 09:39 Pulse Ox 94 L 12/04/20 09:39 Intake & Output 12/03/20 12/04/20 12/04/20 18:59 06:59 18:59 Intake Total 1080 Balance 1080 Intake: Oral 1080 Other: Voiding Method Toilet # Voids 3 1 - Exam The patient appeared well nourished and normally developed. Vital signs as documented. Head exam is unremarkable. No scleral icterus or corneal arcus noted. Neck is without jugular venous distension, thyromegaly, or carotid bruits. Carotid upstrokes are brisk bilaterally. Lungs are clear to auscultation and percussion. Cardiac exam reveals the PMI to be normally sized and situated. Rhythm is regular. First and second heart sounds normal. No murmurs, rubs or gallops. Abdominal exam reveals normal bowel sounds, no masses, no organomegaly and no aortic enlargement. Extremities are nonedematous and both femoral and pedal pulses are normal.Examination of the skin revealed no evidence of s ignificant rashes, suspicious appearing nevi or other concerning lesions.Neurologically, the patient is awake and alert and the patient does not have any focal neurological deficit. Cranial nerves are essentially intact. - Labs CBC & Chem 7: 12/04/20 06:05 12/04/20 06:05 Labs: Abnormal Lab Results - Last 24 Hours (Table) 12/03/20 12/04/20 12/04/20 Range/Units 11:54 06:05 06:05 WBC 12.3 H (3.8-10.6) k/uL Neutrophils # 10.2 H (1.3-7.7) k/uL D-Dimer 0.73 H (<0.60) mg/L FEU BUN/Creatinine Ratio 28.75 H (12.00-20.00) Ratio Glucose 130 H (70-110) mg/dL Calcium 8.4 L (8.7-10.3) mg/dL Total Protein 5.5 L (6.2-8.2) g/dL Albumin 3.40 L (3.80-4.90) g/dL Assessment and Plan Plan: 1 Acute COVID 19 related pneumonia with mild hypoxemia and shortness of breath and cough 2 acute hypoxic respiratory failure and the patient is currently on 91% on room air. 3 shortness of breath secondary to above 4 mild inflammatory marker rise secondary to Covid 19 related pneumonia/infection 5 obstructive sleep apnea, AHI of 13 and the patient is demented on APAP minimum pressure of 5 and a maximal pressure 15 6 obesity 7 hypertension Plan Initiate Decadron 6 mg by mouth daily in combination with Remdesivir is currently day #2. The patient tried to use his CPAP overnight and he was unable to and he is currently using only oxygen overnight at 2 L per minute nasal cannula. He does have a CPAP machine from home that he was given 4 obstructive sleep apnea. He is making complaint remains some shortness of breath and cough and liquidy diarrhea. Oxygenation and maintain a saturation above 90% Utilize the various supplements including vitamin C, vitamin D, zinc and Pepcid and melatonin Lovenox 40 mg subcu for DVT prophylaxis and obtain a d-dimer Recheck inflammatory markers tomorrow We'll continue to follow.
[2020-12-04] MEDS: REMDESIVIR 100 MG in SODIUM CHLORIDE 0.9% 250 ML IVPB SCH (12:17)
--- NOTE | 2020-12-04 22:19 | PN ---
PROGRESS NOTE DATE OF SERVICE: 12/04/2020 REASON FOR FOLLOWUP: COVID-19 pneumonia. INTERVAL HISTORY: The patient is currently afebrile. The patient is currently breathing slightly comfortably. Still complaining of cough, which has been moderate in intensity. Not bringing up any sputum. Shortness of breath on exertion. No nausea, no vomiting. No abdominal pain. No diarrhea. PHYSICAL EXAMINATION: Blood pressure 140/82 with a pulse of 77. Temperature 99.3. He is 93% on room air. General description: The patient is a middle-aged male lying in bed in no distress. Respiratory system: Unlabored breathing, decreased intensity of breath sounds with no wheeze. Heart S1, S2. Regular rate and rhythm. ABDOMEN: Soft, no tenderness. LABS: Hemoglobin 14, white count 12.3, BUN 20, creatinine 0.8. DIAGNOSTIC IMPRESSION/PLAN: The patient with acute Covid 19 pneumonia, currently being treated with Remdesivir, Dexamethasone, Lovenox, zinc to continue along with respiratory support. Monitor clinical course closely. MMODL / IJN: [id number] /
[2020-12-05] MEDS: ENOXAPARIN 40 MG/0.4 ML SYRINGE SQ SCH (07:41)
[2020-12-05] MEDS: ASCORBIC ACID 500 MG TAB PO SCH (07:41)
[2020-12-05] MEDS: dexAMETHasone 2 MG TAB PO SCH (07:41)
[2020-12-05] MEDS: ZINC SULFATE 220 MG CAP PO SCH (07:41)
[2020-12-05] MEDS: ATORVASTATIN 20 MG TAB PO SCH (07:41)
[2020-12-05] MEDS: lisinopriL 5 MG TAB PO SCH (07:42)
[2020-12-05] MEDS: carvediloL 12.5 MG TAB PO SCH ×2 (07:42→17:40)
[2020-12-05] MEDS: ALBUTEROL HFA INHALER INHALATION SCH ×4 (08:35→20:47)
--- NOTE | 2020-12-05 08:45 | XR ---
EXAMINATION TYPE: XR chest 1V portable DATE OF EXAM: 12/05/2020 COMPARISON: Chest x-ray 12/03/2020 HISTORY: Shortness of breath, follow up Covid pneumonia TECHNIQUE: Single frontal view of the chest is obtained. FINDINGS: Postop changes are noted to the cervical spine. Cardiac mediastinal silhouette is stable. Patchy densities noted at the lung bases. There is no evident pneumothorax or pleural effusion. IMPRESSION: Findings consistent with pneumonia. Additional follow-up recommended.
[2020-12-05 10:45] LABS: C Reactive Protein 3.7 mg/dL (0.0-0.8)
--- NOTE | 2020-12-05 11:43 | P.PN ---
Subjective Progress Note Date: 12/05/20 HISTORY OF PRESENT ILLNESS This is a 54-year-old male patient of Dr. Spencer with past medical history of hypertension, hyperlipidemia, obstructive sleep apnea with CPAP on the care of Dr. Browning. Patient gives history that he was diagnosed on November 25 with: 19 that was done at [facility]. The previous weekend he was with a friend and on Tuesday he received a call that his friend was diagnosed with positive Covid 19. He has been in quarantine at home. On Tuesday his also tested positive. Patient did not develop symptoms until Tuesday which included fever, shortness of breath cough with white sputum production as well as nausea, vomiting diarrhea. His rest of her symptoms seem to worsen and shortness of breath was significantly bad yesterday and he decided to come into the hospital. Subsequently the nausea vomiting and diarrhea have resolved. He denies abdominal pain. He does not have home oxygen. Patient presented to [facility] emergency center for evaluation. Temperature 101.7. Heart rate 93, blood pressure 120/70, pulse ox 93% on room air. CBC was unremarkable. D-dimer 0.73. BUN 25 and creatinine 0.93. Blood sugar 117. Liver function tests normal. LDH 662. C-reactive protein 11.9. EKG is a normal sinus rhythm with no ST changes. Chest x-ray reveals suspected left perihilar and right lower lobe airspace opacities which may be infectious. Patient admitted to the [facility] floor and consult with pul monary medicine and infectious disease. 12/04: She was seen by pulmonary medicine and started on Remdesivir, day. 12/19. Patient is also on dexamethasone, Lovenox and supplements. Patient is also been seen by Dr. Flores with recommendations for no antibiotics as no evidence of secondary bacterial infection. Patient attempted to utilize CPAP last night but this causes him to cough and he was maintained on oxygen for the night. He is currently on room air with pulse ox of 95%. He appears to be comfortable and denies shortness of breath at rest. He does have a little cough. Repeat blood work reveals WBC 12.3. Chemistry panel is pending at the time of this dictation. 12/05: Vision and states he was unable to tolerate CPAP during the night due to coughing. He continues to have a cough is nonproductive. No significant shortness of breath at rest. He is reaching 2000 ML's on incentive spirometry. He is currently off oxygen with pulse ox is 93%. A. fib afebrile, heart rate 67, blood pressure 125/80. He is on day #3/5 of Remdesivir. Chest x-ray reveals findings consistent with pneumonia. Additional follow-up recommended. REVIEW OF SYSTEMS Constitutional: Denies fever, denies chills, no night sweats. No weight change. Reports weakness, Reports fatigue or lethargy. No daytime sleepiness. EENT: No headache. No blurred vision or double vision, no loss of vision. No loss of Hearing, no ringing in the ears, no dizziness. No nasal drainage or congestion. No epistaxis. No sore throat. Lungs: Reports very mild shortness of breath, Reports cough, denies sputum production. No wheezing. Cardiovascular: No chest pain, no lower extremity edema. No palpitations. No paroxysmal nocturnal dyspnea. No orthopnea. No lightheadedness or dizziness. No syncopal episodes. Abdominal: No abdominal pain. No nausea, vomiting. No diarrhea. No constipa tion. No bloody or tarry stools.. No loss of appetite. Genitourinary: No dysuria, increased frequency, urgency. No urinary retention. Musculoskeletal: No myalgias. No muscle weakness, no gait dysfunction, no frequent falls. No back pain. No neck pain. Integumentary: No wounds, no lesions. No rash or pruritus. No unusual bruising. No change in hair or nails. Neurologic: No aphasia. No facial droop. No change in mentation. No head injury. No headache. No paralysis. No paresthesia. Psychiatric: No depression. No anxiety. Endocrine: No abnormal blood sugars. No weight change. No excessive sweating or thirst. No cold intolerance. PHYSICAL EXAMINATION Gen: This is a 54-year-old male. He is resting in chair and appears to be in no acute distress. No oxygen in use. HEENT: Head is atraumatic, normocephalic. Pupils equal, round. Sclerae is ani cteric. NECK: Supple. No JVD. No lymphadenopathy. No thyromegaly. LUNGS: Clear to auscultation. No wheezes or rhonchi. No intercostal retractions. No accessory muscle usage. HEART: Regular rate and rhythm. No murmur. ABDOMEN: Soft. Bowel sounds are present. No masses. No tenderness. EXTREMITIES: No pedal edema. No calf tenderness. Dorsalis pedis palpable bilaterally. NEUROLOGICAL: Patient is awake, alert and oriented x3. Cranial nerves 2 through 12 are grossly intact. ASSESSMENT AND PLAN 1. Acute Covid 19 pneumonia. Consult with pulmonary medicine. Pulmonary medicine who started the patient on Remdesivir, day 3/5. Continue vitamin C, zinc, dexamethasone 6 mg oral daily, Lovenox 40 mg subcu daily. Repeat chest x- ray as above. 2. History of obstructive sleep apnea. Continue CPAP as tolerated at night. Patient has been using nasal cannula oxygen only. 3. Hypertension. Continue Coreg 25 mg twice daily, hydrochlorothiazide 50 mg daily, lisinopril 10 mg daily 4. Hyperlipidemia. Continue simvastatin 20 mg at bedtime. 5. Gastroesophageal reflux disease. Continue omeprazole 20 mg daily. 6. DVT prophylaxis. Lovenox. DISCHARGE PLAN Home on Tuesday or Tuesday pending clearance from pulmonary medicine. Impression and plan of care have been directed as dictated by the signing physician. Jacqui Serna nurse practitioner acting as scribe for signing physician. Objective - Vital Signs Vital signs: Vital Signs Temp 99.1 F 12/05/20 05:47 Pulse 67 12/05/20 07:39 Resp 15 12/05/20 05:47 BP 125/80 12/05/20 07:39 Pulse Ox 93 L 12/05/20 05:47 Intake & Output 12/04/20 12/05/20 12/05/20 18:59 06:59 18:59 Intake Total 200 Balance 200 Intake: Oral 200 Other: Voiding Method Toilet # Voids 1 2 1 - Labs CBC & Chem 7: 12/04/20 06:05 12/04/20 06:05 Labs: Abnormal Lab Results - Last 24 Hours (Table) 12/04/20 12/05/20 Range/Units 06:05 06:05 D-Dimer 0.61 H (<0.60) mg/L FEU BUN/Creatinine Ratio 28.75 H (12.00-20.00) Ratio Glucose 130 H (70-110) mg/dL Calcium 8.4 L (8.7-10.3) mg/dL Total Protein 5.5 L (6.2-8.2) g/dL Albumin 3.40 L (3.80-4.90) g/dL
[2020-12-05] MEDS: REMDESIVIR 100 MG in SODIUM CHLORIDE 0.9% 250 ML IVPB SCH (12:02)
--- NOTE | 2020-12-05 13:18 | P.PN ---
Subjective Progress Note Date: 12/05/20 Principal diagnosis: Acute COVID 19 related pneumonia 64-year-old male patient who had the typical symptoms of COVID19 related infection that started approximately 1 week. The patient lost his taste and smell and he had fever along with nausea vomiting and some diarrhea. He was managing himself well at home. He started getting progressively more short of breath and he developed some increased coffee end up coming to the hospital. His chest that showed some infiltration of the left lung and some hazy infiltration of the right and the patient's pulse ox was dropping down to 91% on room air oxygen. He was hospitalized. Note that the patient was receiving prednisone burst taper on outpatient basis given to him by his primary care physician. He is awake and alert. She is following commands and answering questions. No new complaints otherwise for now. He feels that his lungs are round and water and he is having some increased shortness of breath. The LDH level 662, a CRP level was 11.9, the rest of the blood work was essentially within normal limits. No thrombocytopenia. No lymphopenia. Coagulation profile was normal. D-dimer was not checked. 12/04/2020, the patient is still having some shortness of breath with limited amount of activity. Nevertheless he was able to maintain his pulse ox above 90%. He is not having any major desaturation and his oxygen pulse ox is okay at 94% today. I'm going to provide him an incentive spirometer. The patient is still on Decadron 6 mg by mouth daily and he was also started on Remdesivir and he is day #2 of treatment. The patient is having liquidy diarrhea. Some vague abdominal discomfort. These are his GI manifestations of Covid 19. Inflammatory markers were not checked today. The d-dimer is at 0.73 and the patient is on Lovenox for DVT prophylaxis 40 mg subcu on a daily basis. On 12/05/2020 patient seen in follow-up on medical floor. Patient is day 3 of Remdesivir treatment, he is on room air, he did wear his CPAP at night, his symptom markers are improving, his d-dimer is 0.61, he is on lactulose dose of Lovenox, and Decadron 6 mg daily, no worsening symptoms of dyspnea or cough, no fever or chills. His chest x-ray has been reviewed showing patchy densities at the lung bases. Objective - Vital Signs Vital signs: Vital Signs Temp 98.7 F 12/05/20 09:49 Pulse 61 12/05/20 09:49 Resp 20 12/05/20 09:49 BP 140/75 12/05/20 09:49 Pulse Ox 92 L 12/05/20 09:49 Intake & Output 12/04/20 12/05/20 12/05/20 18:59 06:59 18:59 Intake Total 200 Balance 200 Intake: Oral 200 Other: Voiding Method Toilet # Voids 1 2 1 - Exam GENERAL EXAM: Alert, very pleasant, 54-year-old white male on room air, with pulse ox of 92% comfortable in no apparent distress. HEAD: Normocephalic/atraumatic. EYES: Normal reaction of pupils, equal size. Conjunctiva pink, sclera white. NOSE: Clear with pink turbinates. THROAT: No erythema or exudates. NECK: No masses, no JVD, no thyroid enlargement, no adenopathy. CHEST: No chest wall deformity. Symmetrical expansion. LUNGS: Equal air entry with no crackles, wheeze, rhonchi or dullness. CVS: Regular rate and rhythm, normal S1 and S2, no gallops, no murmurs, no rubs ABDOMEN: Soft, nontender. No hepatosplenomegaly, normal bowel sounds, no guarding or rigidity. EXTREMITIES: No clubbing, no edema, no cyanosis, 2+ pulses and upper and lower extremities. MUSCULOSKELETAL: Muscle strength and tone normal. SPINE: No scoliosis or deformity SKIN: No rashes CENTRAL NERVOUS SYSTEM: Alert and oriented -3. No focal deficits, tone is normal in all 4 extremities. PSYCHIATRIC: Alert and oriented -3. Appropriate affect. Intact judgment and insight. - Labs CBC & Chem 7: 12/04/20 06:05 12/04/20 06:05 Labs: Abnormal Lab Results - Last 24 Hours (Table) 12/05/20 12/05/20 Range/Units 06:05 06:05 D-Dimer 0.61 H (<0.60) mg/L FEU C-Reactive Protein 3.7 H (0.0-0.8) mg/dL Assessment and Plan Plan: 1 Acute COVID 19 related pneumonia with mild hypoxemia and shortness of breath and cough. Patient was started on Remdesivir treatment on 12/02/2020 2 acute hypoxic respiratory failure and the patient is currently on 91% on room air. 3 shortness of breath secondary to above 4 mild inflammatory marker rise secondary to Covid 19 related pneumonia/infection 5 obstructive sleep apnea, AHI of 13 and the patient is demented on APAP minimum pressure of 5 and a maximal pressure 15 6 obesity 7 hypertension Plan: Remains stable from pulmonary perspective, no worsening dyspnea, no cough, vital signs have been stable, he is on day 3 of Remdesivir, continue with Decadron, inflammatory markers are improving, if he remains stable and continues to improve in the next 24 hours may consider his Remdesivir treatment early in hands consider the patient for discharge home in the next 24 hours I performed a history & physical examination of the patient and discussed their management with my nurse practitioner, Nina Howe. I reviewed the nurse practitioner's note and agree with the documented findings and plan of care. Lung sounds are positive for diminished breath sounds. The findings and the impression was discussed with the patient. I attest to the documentation by the nurse practitioner. Time with Patient: Less than 30
--- NOTE | 2020-12-05 17:59 | PN ---
PROGRESS NOTE DATE OF SERVICE: 12/05/2020 REASON FOR FOLLOWUP: COVID-19 pneumonia. INTERVAL HISTORY: The patient is currently afebrile. The patient is feeling better today. He is breathing more comfortably. The patient denies having any chest pain. Continues to have a cough, decreased in intensity. No nausea, no vomiting, no abdominal pain or diarrhea. PHYSICAL EXAMINATION: Blood pressure 130/76, pulse of 60, temperature 99.1. He is 92% on room air. General description is a middle-aged male up in the room in no distress. RESPIRATORY SYSTEM: Unlabored breathing with decreased intensity of breath sounds. No wheeze. HEART: S1, S2. Regular rate and rhythm. ABDOMEN: Soft. No tenderness. LABS: D-dimer is down to 0.61. CRP 3.7. DIAGNOSTIC IMPRESSION AND PLAN: Patient with acute COVID-19 pneumonia in this patient who seems to have shown overall clinical improvement, currently on remdesivir, dexamethasone, Lovenox, zinc; to continue along with respiratory support and monitor clinical course closely. MMODL / IJN: [id number] /
[2020-12-06] MEDS ORDERED: ACETAMINOPHEN TAB 325 MG TAB PO PRN (02:31)
[2020-12-06] MEDS: ALBUTEROL HFA INHALER INHALATION SCH ×2 (07:41→12:24)
[2020-12-06] MEDS: dexAMETHasone 2 MG TAB PO SCH (08:28)
[2020-12-06] MEDS: ASCORBIC ACID 500 MG TAB PO SCH (08:28)
[2020-12-06] MEDS: ZINC SULFATE 220 MG CAP PO SCH (08:28)
[2020-12-06] MEDS: carvediloL 12.5 MG TAB PO SCH (08:28)
[2020-12-06] MEDS: ATORVASTATIN 20 MG TAB PO SCH (08:28)
[2020-12-06] MEDS: lisinopriL 5 MG TAB PO SCH (08:28)
[2020-12-06] MEDS: ENOXAPARIN 40 MG/0.4 ML SYRINGE SQ SCH (08:28)
[2020-12-06 10:09] VITALS: BP 132/79; PULSE 64; RESP 18; TEMP 98.3
--- NOTE | 2020-12-06 10:44 | P.PN ---
Subjective Progress Note Date: 12/06/20 This is a 54-year-old male patient of Dr. Spencer with past medical history of hypertension, hyperlipidemia, obstructive sleep apnea with CPAP on the care of Dr. Browning. Patient gives history that he was diagnosed on November 25 with: 19 that was done at [employer] [facility]. The previous weekend he was with a friend and on Tuesday he received a call that his friend was diagnosed with positive Covid 19. He has been in quarantine at home. On Tuesday his also tested positive. Patient did not develop symptoms until Tuesday which included fever, shortness of breath cough with white sputum production as well as nausea, vomiting diarrhea. His rest of her symptoms seem to worsen and shortness of breath was significantly bad yesterday and he decided to come into the hospital. Subsequently the nausea vomiting and diarrhea have resolved. He denies abdominal pain. He does not have home oxygen. Patient presented to [facility] emergency center for evaluation. Temperature 101.7. Heart rate 93, blood pressure 120/70, pulse ox 93% on room air. CBC was unremarkable. D-dimer 0.73. BUN 25 and creatinine 0.93. Blood sugar 117. Liver function tests normal. LDH 662. C-reactive protein 11.9. EKG is a normal sinus rhythm with no ST changes. Chest x-ray reveals suspected left perihilar and right lower lobe airspace opacities which may be infectious. Patient admitted to the [facility] floor and consult with pulmonary medicine and infectious disease. 12/04: She was seen by pulmonary medicine and started on Remdesivir, day. 12/19. Patient is also on dexamethasone, Lovenox and supplements. Patient is also been seen by Dr. Flores with recommendations for no antibiotics as no evidence of secondary bacterial infection. Patient attempted to utilize CPAP last night but this causes him to cough and he was maintained on oxygen for the night. He is currently on room air with pulse ox of 95%. He appears to be comfortable and denies shortness of breath at rest. He does have a little cough. Repeat blood work reveals WBC 12.3. Chemistry panel is pending at the time of this dictation. 12/05: Vision and states he was unable to tolerate CPAP during the night due to coughing. He continues to have a cough is nonproductive. No significant shortness of breath at rest. He is reaching 2000 ML's on incentive spirometry. He is currently off oxygen with pulse ox is 93%. A. fib afebrile, heart rate 67, blood pressure 125/80. He is on day #3/5 of Remdesivir. Chest x-ray reveals findings consistent with pneumonia. Additional follow-up recommended. 12/06/2019, the patient is being seen for a follow-up. During the incentive spirometer. Still under treatment for Covid 19 related pneumonia. Pulse ox this morning is 90% on room air. Noted earlier the patient was on 2 L of oxygen and the pulse ox was 96%. Afebrile. He was dynamically stable. No tachycardia. No tachypnea. Blood work shows a d-dimer of 0.61. His CRP level is down to 2.2. The patient is completing day #4 of Remdesivir and the patient is also 40 mg of Lanoxin is also on Decadron 6 mg by mouth on a daily basis. Outpatient medications of been ordered resume. Issues for now. He is hemodynamically stable. His pulse ox needs to be checked with activity to make sure there is no exertional hypoxemia. Objective - Vital Signs Vital signs: Vital Signs Temp 98.3 F 12/06/20 10:09 Pulse 64 12/06/20 10:09 Resp 18 12/06/20 10:09 BP 132/79 12/06/20 10:09 Pulse Ox 90 L 12/06/20 10:09 Intake & Output 12/05/20 12/06/20 12/06/20 18:59 06:59 18:59 Intake Total 500 Balance 500 Intake: Oral 500 Other: Voiding Method Toilet # Voids 1 1 - Exam The patient appeared well nourished and normally developed. Vital signs as documented. Head exam is unremarkable. No scleral icterus or corneal arcus noted. Neck is without jugular venous distension, thyromegaly, or carotid bruits. Carotid upstrokes are brisk bilaterally. Lungs are clear to auscultation and percussion. Cardiac exam reveals the PMI to be normally sized and situated. Rhythm is regular. First and second heart sounds normal. No murmurs, rubs or gallops. Abdominal exam reveals normal bowel sounds, no masses, no organomegaly and no aortic enlargement. Extremities are nonedematous and both femoral and pedal pulses are normal.Examination of the skin revealed no evidence of significant rashes, suspicious appearing nevi or other concerning lesions.Neurologically, the patient is awake and alert and the patient does not have any focal neurological deficit. Cranial nerves are essentially intact. - Labs CBC & Chem 7: 12/04/20 06:05 12/04/20 06:05 Labs: Abnormal Lab Results - Last 24 Hours (Table) 12/05/20 12/06/20 12/06/20 Range/Units 06:05 05:52 05:52 D-Dimer 0.61 H (<0.60) mg/L FEU C-Reactive Protein 3.7 H 2.2 H (0.0-0.8) mg/dL Assessment and Plan Plan: 1 Acute COVID 19 related pneumonia with mild hypoxemia and shortness of breath and cough, clinically improving and the patient is currently on room air oxygen completing day #4 of Remdesivir ad he is on Decadron 2 acute hypoxic respiratory failure and the patient is currently on 91% on room air. 3 shortness of breath secondary to above 4 mild inflammatory marker rise secondary to Covid 19 related pneumonia/infection 5 obstructive sleep apnea, AHI of 13 and the patient is demented on APAP minimum pressure of 5 and a maximal pressure 15 6 obesity 7 hypertension Plan Initiate Decadron 6 mg by mouth daily in combination with Remdesivir is currently day #4. He was complaint remains some shortness of breath and co ugh and liquidy diarrhea, he has subsided. Oxygenation and maintain a saturation above 90% Utilize the various supplements including vitamin C, vitamin D, zinc and Pepcid and melatonin Lovenox 40 mg subcu for DVT prophylaxis and obtain a d-dimer We'll continue to follow. Recommending discharge today and cutting the course of Remdesivir to 4 days. He can ideally take his fourth dose today and go home. Just a total of 10 day course of Decadron 6 mg by mouth daily. Monitor the oxygenation at home. She can be discharged home today. I'll see him back in the office for a follow-up on his pulmonary status and his CPAP compliancy.
--- NOTE | 2020-12-06 11:11 | P.DS ---
Providers Date of admission: 12/03/20 09:07 Attending physician: Lei Mclaughlin Consults: 12/03/20 04:46 Consult Physician Routine Consulting Provider: Tatyana Flores Consult Reason/Comments: covid Do you want consulting provider notified?: Yes 12/03/20 04:47 Consult Physician Routine Consulting Provider: Howard Browning Consult Reason/Comments: covid Do you want consulting provider notified?: Yes Primary care physician: [facility] Course: Subjective Progress Note Date: 12/05/20 HISTORY OF PRESENT ILLNESS This is a 54-year-old male patient of Dr. Spencer with past medical history of hypertension, hyperlipidemia, obstructive sleep apnea with CPAP on the care of Dr. Browning. Patient gives history that he was diagnosed on November 25 with: 19 that was done at [facility] The previous weekend he was with a friend and on Tuesday he received a call that his friend was diagnosed with positive Covid 19. He has been in quarantine at home. On Tuesday his also tested positive. Patient did not develop symptoms until Tuesday which included fever, shortness of breath cough with white sputum production as well as nausea, vomiting diarrhea. His rest of her symptoms seem to worsen and shortness of breath was significantly bad yesterday and he decided to come into the hospital. Subsequently the nausea vomiting and diarrhea have resolved. He denies abdominal pain. He does not have home oxygen. Patient presented to [facility] emergency center for evaluation. Temperature 101.7. Heart rate 93, blood pressure 120/70, pulse ox 93% on room air. CBC was unremarkable. D-dimer 0.73. BUN 25 and creatinine 0.93. Blood sugar 117. Liver function tests normal. LDH 662. C-reactive protein 11.9. EKG is a normal sinus rhythm with no ST changes. Chest x-ray reveals suspected left perihilar and right lower lobe airspace opacities which may be infectious. Patient admitted to the [facility] floor and consult with pulmonary medicine and infectious disease. 12/04: She was seen by pulmonary medicine and started on Remdesivir, day. 12/19. Patient is also on dexamethasone, Lovenox and supplements. Patient is also been seen by Dr. Flores with recommendations for no antibiotics as no evidence of secondary bacterial infection. Patient attempted to utilize CPAP last night but this causes him to cough and he was maintained on oxygen for the night. He is currently on room air with pulse ox of 95%. He appears to be comfortable and denies shortness of breath at rest. He does have a little cough. Repeat blood work reveals WBC 12.3. Chemistry panel is pending at the time of this dictation. 12/05: Vision and states he was unable to tolerate CPAP during the night due to c oughing. He continues to have a cough is nonproductive. No significant shortness of breath at rest. He is reaching 2000 ML's on incentive spirometry. He is currently off oxygen with pulse ox is 93%. A. fib afebrile, heart rate 67, blood pressure 125/80. He is on day #3/5 of Remdesivir. Chest x-ray reveals findings consistent with pneumonia. Additional follow-up recommended. REVIEW OF SYSTEMS Constitutional: Denies fever, denies chills, no night sweats. No weight change. Reports weakness, Reports fatigue or lethargy. No daytime sleepiness. EENT: No headache. No blurred vision or double vision, no loss of vision. No loss of Hearing, no ringing in the ears, no dizziness. No nasal drainage or congestion. No epistaxis. No sore throat. Lungs: Reports very mild shortness of breath, Reports cough, denies sputum production. No wheezing. Cardiovascular: No chest pain, no lower extremity edema. No palpitations. No paroxysmal nocturnal dyspnea. No orthopnea. No lightheadedness or dizziness. No syncopal episodes. Abdominal: No abdominal pain. No nausea, vomiting. No diarrhea. No constipation. No bloody or tarry stools.. No loss of appetite. Genitourinary: No dysuria, increased frequency, urgency. No urinary retention. Musculoskeletal: No myalgias. No muscle weakness, no gait dysfunction, no frequent falls. No back pain. No neck pain. Integumentary: No wounds, no lesions. No rash or pruritus. No unusual bruising. No change in hair or nails. Neurologic: No aphasia. No facial droop. No change in mentation. No head injury. No headache. No paralysis. No paresthesia. Psychiatric: No depression. No anxiety. Endocrine: No abnormal blood sugars. No weight change. No excessive sweating or thirst. No cold intolerance. PHYSICAL EXAMINATION Gen: This is a 54-year-old male. He is resting in chair and appears to be in no acute distress. No oxygen in use. HEENT: Head is atraumatic, normocephalic. Pupils equal, round. Sclerae is anicteric. NECK: Supple. No JVD. No lymphadenopathy. No thyromegaly. LUNGS: Clear to auscultation. No wheezes or rhonchi. No intercostal retractions. No accessory muscle usage. HEART: Regular rate and rhythm. No murmur. ABDOMEN: Soft. Bowel sounds are present. No masses. No tenderness. EXTREMITIES: No pedal edema. No calf tenderness. Dorsalis pedis palpable bilaterally. NEUROLOGICAL: Patient is awake, alert and oriented x3. Cranial nerves 2 through 12 are grossly intact. ASSESSMENT AND PLAN 1. Acute Covid 19 pneumonia. Consult with pulmonary medicine. Pulmonary medicine who started the patient on Remdesivir, day 3/5. Continue vitamin C, zinc, dexamethasone 6 mg oral daily, Lovenox 40 mg subcu daily. Repeat chest x- ray as above. 2. History of obstructive sleep apnea. Continue CPAP as tolerated at night. Patient has been using nasal cannula oxygen only. 3. Hypertension. Continue Coreg 25 mg twice daily, hydrochlorothiazide 50 mg daily, lisinopril 10 mg daily 4. Hyperlipidemia. Continue simvastatin 20 mg at bedtime. 5. Gastroesophageal reflux disease. Continue omeprazole 20 mg daily. 6. DVT prophylaxis. Lovenox. 12/06: Patient is doing very well he will have the fourth dose of Remdesivir today and he'll be discharged home. Patient to be quarantine again for 7 days and to go back to work after 2 weeks. Follow-up with primary care physician with the next 7 days. Patient Condition at Discharge: Fair Plan - Discharge Summary Discharge Rx Participant: No New Discharge Prescriptions: New dexAMETHasone [Hexadrol] 6 mg PO DAILY #10 tab hydroCHLOROthiazide [Hydrodiuril] 50 mg PO DAILY #30 tab Zinc Sulfate [Orazinc] 220 mg PO DAILY #30 cap Acetaminophen Tab [Tylenol] 650 mg PO Q6HR PRN tab PRN Reason: Fever And/ Or Pain Ascorbic Acid [Vitamin C] 1,000 mg PO DAILY tab lisinopriL [Zestril] 5 mg PO DAILY #30 tab Continue Simvastatin [Zocor] 20 mg PO HS Omeprazole 20 mg PO DAILY Ergocalciferol [Vitamin D2 (1250 Mcg = 09347 Iu)] 1,250 mcg PO NOVAK Albuterol Sulfate [Ventolin HFA] 1 - 2 puff INHALATION RT-Q6H PRN PRN Reason: Shortness Of Breath Acetaminophen Tab [Tylenol] 650 mg PO Q4H PRN PRN Reason: Pain Or Fever > 100.5 hydroCHLOROthiazide [Hydrodiuril] 50 mg PO DAILY Ibuprofen [Motrin] 800 mg PO BID PRN PRN Reason: Pain Fluticasone/Vilanterol [Breo Ellipta 200-25 Mcg INH] 1 puff INHALATION RT- DAILY PRN PRN Reason: Shortness Of Breath Carvedilol [Coreg] 25 mg PO BID Benzonatate [Benzonatate Perle] 200 mg PO Q12H PRN PRN Reason: Cough Amoxicillin 875 mg PO Q12HR Discontinued lisinopriL [Zestril] 5 mg PO DAILY Discharge Medication List Simvastatin [Zocor] 20 mg PO HS 07/07/16 [History] Omeprazole 20 mg PO DAILY 04/25/19 [History] Acetaminophen Tab [Tylenol] 650 mg PO Q4H PRN 12/03/20 [History] Albuterol Sulfate [Ventolin HFA] 1 - 2 puff INHALATION RT-Q6H PRN 12/03/20 [History] Amoxicillin 875 mg PO Q12HR 12/03/20 [History] Benzonatate [Benzonatate Perle] 200 mg PO Q12H PRN 12/03/20 [History] Carvedilol [Coreg] 25 mg PO BID 12/03/20 [History] Ergocalciferol [Vitamin D2 (1250 Mcg = 10993 Iu)] 1,250 mcg PO NOVAK 12/03/20 [History] Fluticasone/Vilanterol [Breo Ellipta 200-25 Mcg INH] 1 puff INHALATION RT-DAILY PRN 12/03/20 [History] Ibuprofen [Motrin] 800 mg PO BID PRN 12/03/20 [History] hydroCHLOROthiazide [Hydrodiuril] 50 mg PO DAILY 12/03/20 [History] Acetaminophen Tab [Tylenol] 650 mg PO Q6HR PRN tab 12/06/20 [Rx] Ascorbic Acid [Vitamin C] 1,000 mg PO DAILY tab 12/06/20 [Rx] Zinc Sulfate [Orazinc] 220 mg PO DAILY #30 cap 12/06/20 [Rx] dexAMETHasone [Hexadrol] 6 mg PO DAILY #10 tab 12/06/20 [Rx] hydroCHLOROthiazide [Hydrodiuril] 50 mg PO DAILY #30 tab 12/06/20 [Rx] lisinopriL [Zestril] 5 mg PO DAILY #30 tab 12/06/20 [Rx] Follow up Appointment(s)/Referral(s): Ochoa Spencer DO [Primary Care Provider] - 1-2 days Howard Browning MD [STAFF PHYSICIAN] - 2 Weeks Patient Instructions/Handouts: Community Acquired Pneumonia (DC) Activity/Diet/Wound Care/Special Instructions: Pt to be quarantine for 7 more days and No work for 2 weeks and seen PCP before going back to work Discharge Disposition: HOME SELF-CARE
[2020-12-06] MEDS: REMDESIVIR 100 MG in SODIUM CHLORIDE 0.9% 250 ML IVPB SCH (11:23)
== END 2020-12-06 13:21 | disposition home or self-care (01) | DRG 177 ==
LOC: EC 03:47 → 4SSUR 04:48 → OBSVTOIN 09:07 → 4SSUR 12-04 19:40
PROVIDERS: ADMIT Internal Medicine Geriatric Medicine; ATTEND Internal Medicine Geriatric Medicine
PROC: XW033E5 Introduction of Remdesivir Anti-infective into Peripheral Vein, Percutaneous Approach, New Technology Group 5 (ICD-10-PCS; principal; 2020-12-04)
PROC: 5A09357 Assistance with Respiratory Ventilation, Less than 24 Consecutive Hours, Continuous Positive Airway Pressure (ICD-10-PCS; principal; 2020-12-04)
DX: U07.1 COVID-19 (principal); J12.82 Pneumonia due to coronavirus disease 2019; Z68.41 Body mass index [BMI] 40.0-44.9, adult; I10 Essential (primary) hypertension; E78.5 Hyperlipidemia, unspecified; G47.33 Obstructive sleep apnea (adult) (pediatric); I48.91 Unspecified atrial fibrillation; E66.9 Obesity, unspecified; K21.9 Gastro-esophageal reflux disease without esophagitis; Z79.1 Long term (current) use of non-steroidal anti-inflammatories (NSAID); Z79.51 Long term (current) use of inhaled steroids; Z79.899 Other long term (current) drug therapy; Z91.013 Allergy to seafood; Z90.49 Acquired absence of other specified parts of digestive tract; Z90.89 Acquired absence of other organs; Z98.890 Other specified postprocedural states; Z98.1 Arthrodesis status; Z98.52 Vasectomy status; Z80.0 Family history of malignant neoplasm of digestive organs; Z80.42 Family history of malignant neoplasm of prostate; Z80.1 Family history of malignant neoplasm of trachea, bronchus and lung; Z80.8 Family history of malignant neoplasm of other organs or systems; Z80.3 Family history of malignant neoplasm of breast
CPT/HCPCS: 36415; 71045; 80053; 83605; 83615; 83735; 85025; 85379; 85610; 85730; 86140; 93005; 94640; 96361; 96374; 96375; 99285

== ENCOUNTER → 2021-01-12 | Day surgery (SDC) | payer BC ==
[2021-01-08 15:55] VITALS: BMI 40.1
[~2021-01-12] MED LIST changes: -ACETAMINOPHEN TAB 500 MG TAB PO ONE; -DEXAMETHASONE SOD PHOSPHATE 10 MG/ML 1 ML VIAL IV ONE; -HYDROmorphone 0.5 MG/0.5 ML SYRINGE IVP PRN; -LIDOCAINE 1% 20 ML VIAL (10MG/ML) FOR IV START INTRADERMA PRN; +LIDOCAINE 2% GEL 30 ML TUBE TOPICAL ONE; -MELOXICAM 7.5 MG TAB PO ONE; -ONDANSETRON 4 MG/2 ML VIAL IVP ONE; -ROPIVACAINE 246.25 MG, EPINEPHrine 0.5 MG, KETOROLAC 30 MG, cloNIDine HCL/PF 80 MCG, WA... MISCELLANE ONE; -SCOPOLAMINE 1.5MG/72HR PATCH TRANSDERM ONE; -TRANEXAMIC ACID 1,000 MG in SODIUM CHLORIDE 0.9% 100 ML IVPB ONE; -ceFAZolin IN SWFI 2 GM/20 ML SYRINGE IVP ONE
[2021-01-12 09:11] VITALS: BP 137/87; PULSE 80; RESP 18; TEMP 97.8
== END ==
LOC: ORWHC2ENDO 08:47
PROVIDERS: ATTEND Internal Medicine Gastroenterology
DX: R13.10 Dysphagia, unspecified (principal)
CPT/HCPCS: 91010

== ENCOUNTER 2025-03-19 14:12 | Emergency (ER) | payer BC ==
[2025-03-19 14:17] VITALS: TEMP 97.8
--- NOTE | 2025-03-19 14:41 | ED ---
General Adult HPI - General Chief complaint: Abdominal Pain Stated complaint: blockage in intestines Time Seen by Provider: 03/19/25 14:20 Source: patient, RN notes reviewed Mode of arrival: ambulatory Limitations: no limitations - History of Present Illness Initial comments: This is a 59-year-old male with a history of hypertension presenting to the emergency department with referral from primary care provider with concerns for a bowel obstruction. Patient states that he has been experiencing relatively persistent right upper quadrant abdominal pain over the past month that will intensify. States that he had an outpatient CT scan of his abdomen ordered last week with the results today, from [facility], which revealed a small bowel obstruction. Patient denies precipitating or modifying factors of the abdominal pain. Denies chest pain, difficulty in breathing, diarrhea or constipation. Last bowel movement this morning. States he has been experiencing intermittent nausea with no reported emesis. Previous cholecystectomy, appendectomy, and hernia repair. - Related Data Home Medications Medication Instructions Recorded Confirmed Simvastatin [Zocor] 20 mg PO HS 07/07/16 01/12/21 Omeprazole 20 mg PO DAILY 04/25/19 01/12/21 Albuterol Sulfate [Ventolin HFA] 1 - 2 puff INHALATION RT-Q6H PRN 12/03/20 01/12/21 Ergocalciferol [Vitamin D2 (1250 1,250 mcg PO NOVAK 12/03/20 01/12/21 Mcg = 70380 Iu)] Ibuprofen [Motrin] 800 mg PO BID PRN 12/03/20 01/12/21 carvediloL [Coreg] 25 mg PO BID 12/03/20 01/12/21 Tamsulosin [Flomax] 0.4 mg PO HS 01/08/21 01/12/21 Previous Rx's Medication Instructions Recorded Acetaminophen Tab [Tylenol] 650 mg PO Q6HR PRN tab 12/06/20 Ascorbic Acid [Vitamin C] 1,000 mg PO DAILY tab 12/06/20 Zinc Sulfate [Orazinc] 220 mg PO DAILY #30 cap 12/06/20 hydroCHLOROthiazide [Hydrodiuril] 50 mg PO DAILY #30 tab 12/06/20 lisinopriL [Zestril] 5 mg PO DAILY #30 tab 12/06/20 Allergies Allergy/AdvReac Type Severity Reaction Status Date / Time shellfish derived [Shellfish] Allergy Rash/Hives Verified 03/19/25 14:16 Review of Systems ROS Statement: Those systems with pertinent positive or pertinent negative responses have been documented in the HPI. ROS Other: All systems not noted in ROS Statement are negative. Past Medical History Past Medical History: Hyperlipidemia, Hypertension Additional Past Medical History / Comment(s): FREQUENT NIGHT URINATION. Uses inhalers because of recent covid. Was in-patient here at [facility] with covid. Discharged the end of Nov. History of Any Multi-Drug Resistant Organisms: None Reported Past Surgical History: Appendectomy, Cholecystectomy, Hernia Repair, Orthopedic Surgery, Tonsillectomy Additional Past Surgical History / Comment(s): 07/14/16 anterior cervical decompression and fusion C4-5, C5-6. Other surgical hx: bessy carpal tunnel, arthroscopy bessy knee, lump removed from neck, lasik eye surgery, bessy shoulder rotator cuff, vasectomy, Bessy Inguinal Hernia, Umbilical Hernia Past Anesthesia/Blood Transfusion Reactions: Family History of Problems w/ Anesthesia, Postoperative Nausea & Vomiting (PONV) Additional Past Anesthesia/Blood Transfusion Reaction / Comment(s): PT STATES HE WAKES UP ANGRY. PTS FATHER WOULD NOT WAKE UP AND HAD TO GO TO ICU DEPT. Past Psychological History: No Psychological Hx Reported Smoking Status: Never smoker - Past Family History Father Family Medical History: Cancer Additional Family Medical History / Comment(s): Colon and Prostate Cancer Mother Family Medical History: Cancer Additional Family Medical History / Comment(s): Mother had lung, breast and bone cancer. General Exam Limitations: no limitations General appearance: alert, in no apparent distress Respiratory exam: Present: normal lung sounds bilaterally. Absent: respiratory distress, wheezes, rales, rhonchi, stridor Cardiovascular Exam: Present: regular rate, normal rhythm, normal heart sounds. Absent: systolic murmur, diastolic murmur, rubs, gallop, clicks GI/Abdominal exam: Present: soft, tenderness (RUQ pain), normal bowel sounds. Absent: distended, guarding, rebound, rigid Extremities exam: Present: normal inspection, full ROM, normal capillary refill. Absent: tenderness, pedal edema, joint swelling, calf tenderness Back exam: Present: normal inspection. Absent: CVA tenderness (R), CVA tenderness (L) Skin exam: Present: warm, dry, intact, normal color. Absent: rash Course Vital Signs 03/19/25 03/19/25 14:14 18:00 Temperature 97.8 F Pulse Rate 76 74 Respiratory 16 18 Rate Blood Pressure 143/89 134/83 O2 Sat by Pulse 95 95 Oximetry Medical Decision Making - Medical Decision Making Was pt. sent in by a medical professional or institution (, RADHA, PLAN NURSE, urgent care, hospital, or shelter...) When possible be specific @ -No Did you speak to anyone other than the patient for history (EMS, parent, family, police, friend...)? What history was obtained from this source @ -No Did you review nursing and triage notes (agree or disagree)? Why? @ -I reviewed and agree with nursing and triage notes Were old charts reviewed (outside hosp., previous admission, EMS record, old EKG, old radiological studies, urgent care reports/EKG's, shelter records)? Report findings @ -No old charts were reviewed Differential Diagnosis (chest pain, altered mental status, abdominal pain women, abdominal pain men, vaginal bleeding, weakness, fever, dyspnea, syncope, headache, dizziness, GI bleed, back pain, seizure, CVA, palpatations, mental health, musculoskeletal)? @ -Differential Abdominal Pain Men: Appendicitis, cholecystitis, diverticulosis, ischemic bowel, pancreatitis, hepatitis, UTI, gastroenteritis, AAA, incarcerated hernia, bowel obstruction, constipation, inflammatory bowel, hepatitis, peptic ulcer disease, splenic infarction, perforated viscus, testicular torsion, this is not meant to be an all-inclusive list EKG interpreted by me (3pts min.). @ -None X-rays interpreted by me (1pt min.). @ -None done CT interpreted by me (1pt min.). @ -CT of the abdomen and pelvis with IV contrast reveals diverticulosis without evidence of acute diverticulitis U/S interpreted by me (1pt. min.). @ -None done What testing was considered but not performed or refused? (CT, X-rays, U/S, labs)? Why? @ -None What meds were considered but not given or refused? Why? @ -None Did you discuss the management of the patient with other professionals (professionals i.e. , RADHA, PLAN NURSE, lab, RT, psych nurse, social science professor, kelp gatherer, teacher, marine safety officer, rehabilitation caseworker)? Give summary @ -No Was smoking cessation discussed for >3mins.? @ -No Was critical care preformed (if so, how long)? @ -No Were there social determinants of health that impacted care today? How? (Homelessness, low income, unemployed, alcoholism, drug addiction, transportation, low edu. Level, literacy, decrease access to med. care, assisted, rehab)? @ -No Was there de-escalation of care discussed even if they declined (Discuss DNR or withdrawal of care, Hospice)? DNR status @ -No What co-morbidities impacted this encounter? (DM, HTN, Smoking, COPD, CAD, Cancer, CVA, ARF, Chemo, Hep., AIDS, mental health diagnosis, sleep apnea, morbid obesity)? @ -None Was patient admitted / discharged? Hospital course, mention meds given and route, prescriptions, significant lab abnormalities, going to OR and other pertinent info. @ -Discharge. 59-year-old male presenting to emergency department with referral from primary care provider with concerns for intestinal obstruction. Overall patient is well-appearing and initial vitals are stable. Mild right upper quadrant tenderness to palpation with no signs of rebound tenderness or r igidity. He was offered pain medication however is declined. Patient provided with allergic cocktail including Benadryl, Pepcid, Solu-Medrol with concern for shellfish allergy as he is going to receive IV iodine contrast for CT of the abdomen. Laboratory testing is unremarkable including CBC, CMP, urinalysis. CT of the abdomen pelvis no signs of bowel obstruction, diverticulosis. Patient is informed of results and instructed follow-up with GI specialist primary care provider. Case discussed with Dr. Johnson Undiagnosed new problem with uncertain prognosis? @ -No Drug Therapy requiring intensive monitoring for toxicity (Heparin, Nitro, Insulin, Cardizem)? @ -No Were any procedures done? @ -No Diagnosis/symptom? @ -Unspecified abdominal pain Acute, or Chronic, or Acute on Chronic? @ -Acute Uncomplicated (without systemic symptoms) or Complicated (systemic symptoms)? @ -Uncomplicated Side effects of treatment? @ -No Exacerbation, Progression, or Severe Exacerbation? @ -No Poses a threat to life or bodily function? How? (Chest pain, USA, NC, pneumonia, PE, COPD, DKA, ARF, appy, cholecystitis, CVA, Diverticulitis, Homicidal, Suicidal, threat to staff... and all critical care pts) @ -No - Lab Data Result diagrams: 03/19/25 15:17 03/19/25 15:57 Lab Results 03/19/25 03/19/25 03/19/25 Range/Units 15:17 15:46 15:57 WBC 7.98 (4.50-10.00) 10*3/uL RBC 5.01 (4.40-5.60) 10*6/uL Hgb 15.2 (13.0-17.0) g/dL Hct 43.9 (39.6-50.0) % MCV 87.6 (80.0-97.0) fL MCH 30.3 (27.0-32.0) pg MCHC 34.6 (32.0-37.0) g/dL Plt Count 203 (140-440) 10*3/uL MPV 9.8 (9.5-12.2) fL Immature Gran % (Auto) 0.4 % Neutrophils % 59.4 % Lymphocytes % 26.7 % Monocytes % 10.3 % Eosinophils % 2.8 % Basophils % 0.4 % Immature Gran # 0.03 (0.00-0.04) 10*3/uL Neutrophils # 4.75 (1.80-7.70) 10*3/uL Lymphocytes # 2.13 (0.90-5.00) 10*3/uL Monocytes # 0.82 (0.20-1.00) 10*3/uL Eosinophils # 0.22 (0.04-0.35) 10*3/uL Basophils # 0.03 (0.00-0.10) 10*3/uL Sodium 139 (137-145) mmol/L Potassium 4.3 (3.5-5.1) mmol/L Chloride 107 (98-107) mmol/L Carbon Dioxide 24 (22-30) mmol/L Anion Gap 8 mmol/L BUN 19 (9-20) mg/dL Creatinine 0.97 (0.66-1.25) mg/dL Est GFR (CKD-EPI)AfAm >90 (>60 ml/min/1.73 sqM) Est GFR (CKD-EPI)NonAf 85 (>60 ml/min/1.73 sqM) Glucose 100 H (74-99) mg/dL Plasma Lactic Acid Dane (0.7-2.0) mmol/L Calcium 9.1 (8.4-10.2) mg/dL Total Bilirubin 0.7 (0.2-1.3) mg/dL AST 29 (17-59) U/L ALT 32 (4-49) U/L Alkaline Phosphatase 74 (38-126) U/L Total Protein 6.8 (6.3-8.2) g/dL Albumin 4.1 (3.5-5.0) g/dL Amylase 59 (30-110) U/L Lipase 161 (23-300) U/L Urine Color Colorless Urine Appearance Clear (Clear) Urine pH 6.5 (5.0-8.0) Ur Specific Crane 1.017 (1.001-1.035) Urine Protein Negative (Negative) Urine Glucose (UA) Negative (Negative) Urine Ketones Negative (Negative) Urine Blood Negative (Negative) Urine Nitrite Negative (Negative) Urine Bilirubin Negative (Negative) Urine Urobilinogen <2.0 (<2.0) mg/dL Ur Leukocyte Esterase Negative (Negative) 03/19/25 Range/Units 15:57 WBC (4.50-10.00) 10*3/uL RBC (4.40-5.60) 10*6/uL Hgb (13.0-17.0) g/dL Hct (39.6-50.0) % MCV (80.0-97.0) fL MCH (27.0-32.0) pg MCHC (32.0-37.0) g/dL Plt Count (140-440) 10*3/uL MPV (9.5-12.2) fL Immature Gran % (Auto) % Neutrophils % % Lymphocytes % % Monocytes % % Eosinophils % % Basophils % % Immature Gran # (0.00-0.04) 10*3/uL Neutrophils # (1.80-7.70) 10*3/uL Lymphocytes # (0.90-5.00) 10*3/uL Monocytes # (0.20-1.00) 10*3/uL Eosinophils # (0.04-0.35) 10*3/uL Basophils # (0.00-0.10) 10*3/uL Sodium (137-145) mmol/L Potassium (3.5-5.1) mmol/L Chloride (98-107) mmol/L Carbon Dioxide (22-30) mmol/L Anion Gap mmol/L BUN (9-20) mg/dL Creatinine (0.66-1.25) mg/dL Est GFR (CKD-EPI)AfAm (>60 ml/min/1.73 sqM) Est GFR (CKD-EPI)NonAf (>60 ml/min/1.73 sqM) Glucose (74-99) mg/dL Plasma Lactic Acid Dane 0.9 (0.7-2.0) mmol/L Calcium (8.4-10.2) mg/dL Total Bilirubin (0.2-1.3) mg/dL AST (17-59) U/L ALT (4-49) U/L Alkaline Phosphatase (38-126) U/L Total Protein (6.3-8.2) g/dL Albumin (3.5-5.0) g/dL Amylase (30-110) U/L Lipase (23-300) U/L Urine Color Urine Appearance (Clear) Urine pH (5.0-8.0) Ur Specific Crane (1.001-1.035) Urine Protein (Negative) Urine Glucose (UA) (Negative) Urine Ketones (Negative) Urine Blood (Negative) Urine Nitrite (Negative) Urine Bilirubin (Negative) Urine Urobilinogen (<2.0) mg/dL Ur Leukocyte Esterase (Negative) Disposition Clinical Impression: Unspecified abdominal pain Disposition: HOME SELF-CARE Condition: Good Instructions (If sedation given, give patient instructions): Abdominal Pain (ED) Additional Instructions: Please return to the Emergency Department if symptoms worsen or any other concerns. Is patient prescribed a controlled substance at d/c from ED?: No Referrals: Ariadna Vergara DO [Primary Care Provider] - 1-2 days Ruth Holman MD [STAFF PHYSICIAN] - 1-2 days Time of Disposition: 18:02
[2025-03-19] MEDS: FAMOTIDINE 20 MG/2 ML VIAL IV STA (15:13)
[2025-03-19] MEDS: diphenhydrAMINE 50 MG/ML 1 ML VIAL IVP STA (15:14)
[2025-03-19] MEDS: methylPREDNISolone SOD SUCCI 125 MG/2 ML VIAL IV STA (15:14)
[2025-03-19 15:26] LABS: Basophils # (A) 0.03 10*3/uL (0.00-0.10); Basophils % (A) 0.4 %; Eosinophils # (A) 0.22 10*3/uL (0.04-0.35); Eosinophils % (A) 2.8 %; HCT 43.9 % (39.6-50.0); HGB 15.2 g/dL (13.0-17.0); Lymphocytes # (A) 2.13 10*3/uL (0.90-5.00); Lymphocytes % (A) 26.7 %; MCH 30.3 pg (27.0-32.0); MCHC 34.6 g/dL (32.0-37.0); MCV 87.6 fL (80.0-97.0); Mean Platelet Volume 9.8 fL (9.5-12.2); Monocytes # (A) 0.82 10*3/uL (0.20-1.00); Monocytes % (A) 10.3 %; Neutrophils # (A) 4.75 10*3/uL (1.80-7.70); Neutrophils % (A) 59.4 %; Platelet Count 203 10*3/uL (140-440); RBC 5.01 10*6/uL (4.40-5.60); RDW 13.6 % (11.5-14.5); WBC 7.98 10*3/uL (4.50-10.00)
[2025-03-19 15:52] LABS: Appearance,Urine Clear (Clear); Bilirubin,Urine Negative (Negative); Blood,Urine Negative (Negative); Color,Urine Colorless; Glucose,Urine (UA) Negative (Negative); Ketones,Urine Negative (Negative); Leukocyte Esterase,Urine Negative (Negative); Nitrite,Urine Negative (Negative); PH, Urine 6.5 (5.0-8.0); Protein,Urine Negative (Negative); Specific Gravity,Urine 1.017 (1.001-1.035); Urobilinogen,Urine <2.0 mg/dL (<2.0)
[2025-03-19 16:42] LABS: ALT 32 U/L (4-49); AST 29 U/L (17-59); African American GFR (CKD) >90 (>60 ml/min/1.73 sqM); Albumin 4.1 g/dL (3.5-5.0); Alkaline Phosphatase 74 U/L (38-126); Amylase 59 U/L (30-110); Anion Gap 8 mmol/L; Blood Urea Nitrogen 19 mg/dL (9-20); Calcium 9.1 mg/dL (8.4-10.2); Carbon Dioxide 24 mmol/L (22-30); Chloride 107 mmol/L (98-107); Glucose 100 mg/dL (74-99); Lipase 161 U/L (23-300); Non-African American GFR(CKD) 85 (>60 ml/min/1.73 sqM); Potassium 4.3 mmol/L (3.5-5.1); Sodium 139 mmol/L (137-145); Total Bilirubin 0.7 mg/dL (0.2-1.3); Total Protein 6.8 g/dL (6.3-8.2)
--- NOTE | 2025-03-19 17:52 | CT ---
EXAMINATION TYPE: CT abdomen pelvis w con DATE OF EXAM: 03/19/2025 5:26 PM COMPARISON: No prior CTs at this location. CLINICAL INDICATION: Male, 59 years old with history of RUQ ab pain, previous CT concern for SBO, RUQ pain, possible SBO TECHNIQUE: Axial images were obtained from above the diaphragm to the pubic rami in the axial plane a t 5 mm thick sections. Reconstructed images are reviewed on the computer in the coronal plane. CONTRAST: 100 mL of Isovue 300. Study performed without Oral Contrast DLP: 1897.1 mGycm, Automated exposure control for dose reduction was used. FINDINGS: Limited CT sections are obtained the lung bases. The lung bases are clear. CT ABDOMEN: Liver: Normal Spleen: Normal Pancreas: Normal Adrenal glands: The adrenal glands are normal. Gallbladder: Surgically absent Kidneys: No masses are evident. No hydronephrosis is present. No cysts are present. Delayed images were obtained through the kidneys, which remain unremarkable. Aorta: Normal Inferior vena cava: Normal. CT PELVIS: Loops of bowel within the abdomen and pelvis are normal. Scattered diverticula are within the sigmoi d colon. No adjacent inflammatory changes to suggest acute diverticulitis. Study is without oral co ntrast limiting bowel evaluation. No suspicious dilated loops of bowel are evident. No fluid filled b owel loops evident. No suspicious changes to suggest obstruction on these images. Appendix: Surgical clips present. Likely prior appendectomy. Correlate with history. Urinary bladder: Normal. Genitourinary structures: Prostate is prominent. Osseous structures: No suspicious lytic or sclerotic lesions. IMPRESSION: 1. Diverticulosis without acute diverticulitis. [facility], Workstation: [facility], 03/19/2025 5:49 PM
[2025-03-19 18:01] VITALS: BP 134/83; PULSE 74; RESP 18
== END 2025-03-19 18:22 | disposition home or self-care (01) ==
LOC: EC 14:12
DX: R10.11 Right upper quadrant pain (principal); Z91.013 Allergy to seafood
CPT/HCPCS: 36415; 80053; 82150; 83605; 83690; 85025; 81003; 74177; 99284; 96374; 96375 ×2; J1200; Q9967; J2919; J1308